=== PATIENT | male | born 1950 | race Hispanic/Latino ===

== ENCOUNTER 2019-02-14 23:05 | Emergency (ER) | payer MEDICARE, OTHER ==
--- NOTE | 2019-02-14 23:18 | Emergency Department Report ---
ED Neuro Deficit HPI - General Chief Complaint: Neuro Symptoms/Deficit Stated Complaint: STROKE Time Seen by Provider: 02/14/19 23:12 Source: EMS Mode of arrival: Stretcher Limitations: No Limitations - History of Present Illness Initial Comments: [facility] Date of Service: 02/14/19 Impression: Stroke vs TIA: patient initally with aphasia and right sided weakness that resolved. I discussed tpa with his but his symptoms improved to only having confusion about how he got there. Would consider seizure in the differential as well. Decision was made not to give tpa due to his improvement of symptoms. Differential Diagnosis: 1. Cardioembolic 2. Small vessel disease/lacune 3. Thromboembolic, bjtsan-[id number] mechanism 4. Hypercoagulable state-related infarct 5. Transient ischemic attack 6. Thrombotic mechanism, large artery disease Comments: LKN: 22:00 Door time: 23:05 [facility] contacted: 23:05 Jeff:[facility]ialists at [id number]: NIHSS assessment time: 23:09 Recommendations: -ASA -Permissive htn up to 220/120 -Check Hgb A1c and lipid panel -dysphagia screen -Telemetry -Glucose control per primary team, avoid hypo- and hyperglycemia -DVT prophylaxis -PT/OT/Speech Inpatient neurology consultation Inpatient stroke evaluation as per Neurology/ Internal Medicine Discussed with ED MD Please call with questions Alyssa Johns, [facility] #[phone] CC right sided weakness and aphasia History of Present Illness 68 yo M who is presenting with right sided weakness and aphasia. Per his who I spoke with by phone he was normal until 22:00 this evening when she felt that he was confused and not making sense. He was able to speak when EMS arrived but then in transport he became non-verbal and developed right sided weakness. His right sided weakness gradually improved during CT and while I was talking with his but he continued to have issues with following any commands or answering questions. Diagnostics CT head: no acute process Exam NIHSS score: 1 Medical Decision Making: - Extensive number of diagnosis or management options are considered above. - Extensive amount of complex data reviewed. - High risk of complication and/or morbidity or mortality are associated with differential diagnostic considerations above. - There may be Uncertain outcome and increased probability of prolonged functional impairment or high probability of severe prolonged functional impair ment associated with some of these differential diagnosis. Medical Data Reviewed: 1.Data reviewed include clinical labs, radiology, Medical Tests; 2.Tests results discussed w/performing or interpreting physician; 3.Obtaining/reviewing old medical records; 4.Obtaining case history from another source; 5.Independent review of image, tracing or specimen. Patient was informed the Neurology Consult would happen via telehealth (remote video) and consented to receiving care in this manner. - Related Data Home Medications: Home Medications Medication Instructions Recorded Confirmed Last Taken Unobtainable 02/15/19 02/15/19 Unknown Allergies/Adverse Reactions: Allergies Allergy/AdvReac Type Severity Reaction Status Date / Time Sulfa (Sulfonamide Allergy Unknown Verified 02/14/19 23:12 Antibiotics) ED Review of Systems ROS: Stated complaint: STROKE Other details as noted in HPI ED Past Medical Hx - Medications Home Medications: Home Medications Medication Instructions Recorded Confirmed Last Taken Type Unobtainable 02/15/19 02/15/19 Unknown History ED Neuro Physical Exam - General Limitations: No Limitations Suspected Stroke: Yes - NIHSS Assessment Interval: Baseline 1a. Level of Consciousness: alert/keenly responsive 1b. LOC Questions: answers 1 question correctly 1c. LOC Commands: performs tasks correctly 2. Best Gaze: normal 3. Visual: no visual loss 4. Facial Palsy: normal symmetrical movement 5b. Motor Arm Right: no drift 5a. Motor Arm Left: no drift 6a. Motor Leg Left: no drift 6b. Motor Leg Right: no drift 7. Limb Ataxia: absent 8. Sensory: normal 9. Best Language: no aphasia 10. Dysarthria: normal 11. Extinction/Inattention: no abnormality Total Score: 1 Stroke Severity: Minor Stroke ED Course Vital Signs 02/14/19 02/14/19 02/14/19 23:28 23:30 23:48 Pulse Rate 66 66 65 Respiratory 9 L 14 10 L Rate Blood Pressure 111/71 O2 Sat by Pulse 96 97 98 Oximetry 02/15/19 00:01 Pulse Rate 70 Respiratory 16 Rate Blood Pressure 159/63 O2 Sat by Pulse 99 Oximetry - Lab Data Result diagrams: 02/14/19 23:24 02/14/19 23:24 Lab Results 02/14/19 02/14/19 02/14/19 Range/Units 23:18 23:24 23:24 WBC 10.9 (4.5-11.0) K/mm3 RBC 4.25 (3.65-5.03) M/mm3 Hgb 12.8 (11.8-15.2) gm/dl Hct 37.3 (35.5-45.6) % MCV 88 (84-94) fl MCH 30 (28-32) pg MCHC 35 H (32-34) % RDW 15.2 (13.2-15.2) % Plt Count 240 (140-440) K/mm3 Lymph % (Auto) 11.5 L (13.4-35.0) % [place] % (Auto) 7.8 H (0.0-7.3) % Eos % (Auto) 2.1 (0.0-4.3) % Baso % (Auto) 1.6 (0.0-1.8) % Lymph # 1.3 (1.2-5.4) K/mm3 [place] # 0.8 (0.0-0.8) K/mm3 Eos # 0.2 (0.0-0.4) K/mm3 Baso # 0.2 H (0.0-0.1) K/mm3 Seg Neutrophils % 77.0 H (40.0-70.0) % Seg Neutrophils # 8.4 H (1.8-7.7) K/mm3 Sodium 134 L (137-145) mmol/L Potassium 5.6 H (3.6-5.0) mmol/L Chloride 95.7 L (98-107) mmol/L Carbon Dioxide 23 (22-30) mmol/L Anion Gap 21 mmol/L BUN 58 H (9-20) mg/dL Creatinine 3.2 H (0.8-1.5) mg/dL Estimated GFR 19 ml/min BUN/Creatinine Ratio 18 % Glucose 132 H (75-100) mg/dL POC Glucose 141 H (70-105) Calcium 9.3 (8.4-10.2) mg/dL Troponin T 0.137 H* (0.00-0.029) ng/mL Critical care attestation.: If time is entered above; I have spent that time in minutes in the direct care of this critically ill patient, excluding procedure time. ED Disposition Clinical Impression: TIA (transient ischemic attack) Disposition: OP ADMIT IP TO THIS HOSP Is pt being admited?: Yes Condition: Stable Referrals: LÓPEZ LORD MD [Primary Care Provider] - 3-5 Days
--- NOTE | 2019-02-14 23:26 | Cat Scan Report ---
CT HEAD/BRAIN WO CON CLINICAL INDICATION: Male, 68 years of age. neuro deficits <6hrs or sx present upon awakening COMPARISON: None TECHNIQUE: Contiguous axial images were obtained from the vertex through the skull base.This CT exam was perform ed using one or more of the following dose reduction techniques: automated exposure control, adjustme nt of the mA and/or kV according to patient size, or use of iterative reconstruction technique. FINDINGS: No acute intracranial hemorrhage, midline shift, or pathological extra-axial fluid collection. There is age-related volume loss with compensatory dilatation of the ventricular system and prominence of the overlying sulci. Patchy areas of decreased attenuation within the subcortical and periventricula r white matter compatible with the sequelae of chronic small vessel ischemic disease. No hyperdense M CA sign. No loss of the subinsular cortex. Ocular globes are grossly unremarkable. Calvarium is gross ly intact. Moderate calcification of carotid siphons. Mild mucosal thickening in the paranasal sinuses. Mastoid air cells are clear. IMPRESSION: No grossly acute intracranial abnormality. Mild age-related volume loss and chronic small vessel isch emic disease. No evidence of acute transcortical infarct or intracranial hemorrhage by CT at this freddie e. If clinical concern for acute intracranial process remains, MRI would be more sensitive. SHELBIE OSR notified of results on February 14, 2019 at 2323 hours EST. This document is electronically signed by Sonja Clark DO., February 14 2019 11:24:32 PM ET
[2019-02-14] MEDS ORDERED: ACTIVASE IV ONE ×2 (23:34)
[2019-02-14] MEDS ORDERED: NACL 0.9% IV ONE (23:34)
[2019-02-14 23:38] LABS: Basophils # (Auto) 0.2 K/mm3 (0.0-0.1); Basophils % (Auto) 1.6 % (0.0-1.8); Eosinophils # (Auto) 0.2 K/mm3 (0.0-0.4); Eosinophils % (Auto) 2.1 % (0.0-4.3); Hematocrit 37.3 % (35.5-45.6); Hemoglobin 12.8 gm/dl (11.8-15.2); Lymphocytes # (Auto) 1.3 K/mm3 (1.2-5.4); Lymphocytes % (Auto) 11.5 % (13.4-35.0); Mean Corpuscular HGB Conc 35 % (32-34); Mean Corpuscular Volume 88 fl (84-94); Monocytes # (Auto) 0.8 K/mm3 (0.0-0.8); Monocytes % (Auto) 7.8 % (0.0-7.3); Platelet Count 240 K/mm3 (140-440); Red Blood Count 4.25 M/mm3 (3.65-5.03); Red Cell Distribution Width 15.2 % (13.2-15.2)
--- NOTE | 2019-02-14 23:38 | Emergency Department Report ---
ED Neuro Deficit HPI - General Chief Complaint: Neuro Symptoms/Deficit Stated Complaint: STROKE Time Seen by Provider: 02/14/19 23:12 Source: EMS Mode of arrival: Stretcher Limitations: No Limitations - History of Present Illness Initial Comments: Mr. Marquez is a 68-year-old male with history of insulin-dependent diabetes, CHF, hypertension who presents with slurred speech and confusion since 10 PM. noticed slurred speech and confusion. Upon EMS arrival he was conversant and able to give name and birthday. However he is now nonverbal. He does not provide any information. He does not attempt to speak any words. He has limited movement of the right side. No previous history of stroke. Currently not on anticoagulation according to EMS report. -: Sudden Time: 22:00 Location: speech, right arm, right leg, altered Presenting Symptoms: Present: Weak/Paralyzed One Side, Unable to Speak Clearly, Altered Mental Status History of same: No Place: home Severity: severe Worsens With: time On Anticoagulants: No Context: sudden onset Treatments Prior to Arrival: none - Related Data Allergies/Adverse Reactions: Allergies Allergy/AdvReac Type Severity Reaction Status Date / Time Sulfa (Sulfonamide Allergy Unknown Verified 02/14/19 23:12 Antibiotics) ED Review of Systems ROS: Stated complaint: STROKE Other details as noted in HPI Comment: Unobtainable due to pts medical conditions (altered mental status) ED Past Medical Hx - Past Medical History Previous Medical History?: Yes Hx Hypertension: Yes Hx Congestive Heart Failure: Yes Hx Diabetes: Yes - Surgical History Additional Surgical History: Unable to obtain - Family History Family history: other (unable to obtain) - Social History Other Social History: Unable to obtain, lives with at home ED Neuro Physical Exam - General Limitations: No Limitations General appearance: lethargic, other (makes eye contact does not attempt to speak, favors the left side) Suspected Stroke: Yes - Head Head exam: Present: atraumatic, normocephalic - Eye Eye exam: Present: normal appearance - ENT ENT exam: Present: mucous membranes moist - Neck Neck exam: Present: normal inspection, full ROM - Respiratory Respiratory exam: Present: normal lung sounds bilaterally. Absent: respiratory distress, wheezes, rales, rhonchi - Cardiovascular Cardiovascular Exam: Present: regular rate, normal rhythm, normal heart sounds. Absent: bradycardia, tachycardia, systolic murmur, diastolic murmur, rubs, gallop - GI/Abdominal GI/Abdominal exam: Present: soft, normal bowel sounds. Absent: distended, tenderness, guarding, rebound - Rectal Rectal exam: Present: deferred - Extremities Exam Extremities exam: Present: normal inspection - Neurological Exam Neurological exam: Present: altered - NIHSS Assessment Interval: Baseline 1a. Level of Consciousness: arousable/minor stimuli 1b. LOC Questions: aphasic 1c. LOC Commands: performs no tasks correctly 2. Best Gaze: corrects with occulocephalic reflex 3. Visual: complete hemianopia 4. Facial Palsy: minor paralysis 5b. Motor Arm Right: some gravity effort 5a. Motor Arm Left: drift 6a. Motor Leg Left: some gravity effort 6b. Motor Leg Right: no gravity effort 7. Limb Ataxia: present 1 limb 8. Sensory: severe/total sensory loss 9. Best Language: mute/global aphasia 10. Dysarthria: mute/anarrthric 11. Extinction/Inattention: profound inattention Total Score: 27 Stroke Severity: Severe Stroke - Psychiatric Psychiatric exam: Present: normal affect, normal mood - Skin Skin exam: Present: warm, dry, intact, normal color. Absent: rash ED Course Vital Signs 02/14/19 23:48 Pulse Rate 65 Respiratory 10 L Rate O2 Sat by Pulse 98 Oximetry - Lab Data Result diagrams: 02/14/19 23:24 Lab Results 02/14/19 02/14/19 Range/Units 23:18 23:24 WBC 10.9 (4.5-11.0) K/mm3 RBC 4.25 (3.65-5.03) M/mm3 Hgb 12.8 (11.8-15.2) gm/dl Hct 37.3 (35.5-45.6) % MCV 88 (84-94) fl MCH 30 (28-32) pg MCHC 35 H (32-34) % RDW 15.2 (13.2-15.2) % Plt Count 240 (140-440) K/mm3 Lymph % (Auto) 11.5 L (13.4-35.0) % [place] % (Auto) 7.8 H (0.0-7.3) % Eos % (Auto) 2.1 (0.0-4.3) % Baso % (Auto) 1.6 (0.0-1.8) % Lymph # 1.3 (1.2-5.4) K/mm3 [place] # 0.8 (0.0-0.8) K/mm3 Eos # 0.2 (0.0-0.4) K/mm3 Baso # 0.2 H (0.0-0.1) K/mm3 Seg Neutrophils % 77.0 H (40.0-70.0) % Seg Neutrophils # 8.4 H (1.8-7.7) K/mm3 POC Glucose 141 H (70-105) 02/14/19 23:38 EKG obtained at 2331 Normal sinus rhythm rate 65 beats a minute prolonged NH interval normal QT interval elevation, nonspecific T-wave pattern inferior Q waves present positive LVH - Radiology Data Radiology results: report reviewed CT head without acute process. - Medical Decision Making Mr. Marquez presented with impressive stroke symptoms of right sided neglect, mute/aphasia, confusion. Remarkably, after returning from CT scan, his symptoms have resolved with only mild aphasia. He is having trouble remember some events. Due to rapidly improving symptoms, TPA is no longer indicated although appropriately ordered by teleneurology specialist Given ASA. Admitted to hospitalist service in fair condition. Critical Care Time: Yes Critical care time in (mins) excluding proc time.: 40 Critical care attestation.: If time is entered above; I have spent that time in minutes in the direct care of this critically ill patient, excluding procedure time. 40 minutes of critical care time excluding procedures were used in the care of the patient. Patient required multiple assessments and interventions. I reviewed the electronic medical record. I spoke with consultants involved in the care of the patient. I came to the bedside immediately to obtain history from EMS. I performed an NIH stroke scale exam alongside teleneurologist. Code stroke was activated. ED Disposition Clinical Impression: TIA (transient ischemic attack) Disposition: OP ADMIT IP TO THIS HOSP Is pt being admited?: Yes Does the pt Need Aspirin: Yes Condition: Stable
[2019-02-14 23:59] LABS: Calcium 9.3 mg/dL (8.4-10.2)
[2019-02-15] MEDS ORDERED: BABY ASPIRIN PO ONE (00:04)
[2019-02-15 00:44] LABS: INR 1.2 (0.87-1.13)
[2019-02-15 00:45] LABS: Partial Thromboplastin Time 27.3 Sec. (24.2-36.6)
[2019-02-15 01:53] LABS: Chol/HDL Ratio 6.84 %
[2019-02-15 02:09] VITALS: BP 167/84
== END 2019-02-15 02:27 | disposition admitted as inpatient to this hospital (09) ==
LOC: ED 23:05
DX: G45.9 Transient cerebral ischemic attack, unspecified (principal); I11.0 Hypertensive heart disease with heart failure; I50.9 Heart failure, unspecified; E11.9 Type 2 diabetes mellitus without complications; Z88.2 Allergy status to sulfonamides
CPT/HCPCS: 36415; 70450; 80048; 80061; 82962; 84484; 85025; 85610; 85670; 85730; 93005; 93010; J2997

== ENCOUNTER 2021-10-06 22:52 | Inpatient (IN) | payer MEDICARE ==
[2021-10-07] MEDS ORDERED: ONDANSETRON 4 MG/2 ML INJ IV ONE
[2021-10-07] MEDS ORDERED: PANTOPRAZOLE 80 MG in SODIUM CHLORIDE 0.9% 100 ML IV ONE (00:01)
[2021-10-07] MEDS ORDERED: PANTOPRAZOLE 40 MG INJ IV ONE (00:01)
--- NOTE | 2021-10-07 00:03 | Emergency Department Report ---
ED General Adult HPI - General Chief complaint: GI Bleed Stated complaint: GI bleed Time Seen by Provider: 10/06/21 23:52 Source: patient, EMS (My EMS is clear), RN notes reviewed Mode of arrival: Stretcher Limitations: No Limitations - History of Present Illness Initial comments: The patient is a 70-year-old gentleman. He is not known to myself previously. He has a history of end-stage renal disease and is on hemodialysis, Saturday, , Saturday. He reports his [place]ai [place] is Dr. Prather at [facility], [place]. He presents to the ER today with a complaint of abdominal cramping, black stool, and possible coffee-ground emesis. He also has a history of chronic respiratory failure, on home oxygen for "water in my heart and lungs." Patient denies headache, neck pain, chest pain, upper abdominal pain, and take your blood thinning medications. He is not sure if he is ever had a colonoscopy or endoscopy. -: Gradual, hour(s) Location: abdomen Radiation: non-radiation Quality: aching Consistency: intermittent Improves with: none Worsens with: none - Related Data Home Medications Medication Instructions Recorded Confirmed Last Taken Unobtainable 02/15/19 02/15/19 Unknown Allergies Allergy/AdvReac Type Severity Reaction Status Date / Time Sulfa (Sulfonamide Allergy Unknown Verified 10/06/21 23:07 Antibiotics) ED Review of Systems ROS: Stated complaint: RECTUM BLEEDING Other details as noted in HPI Constitutional: malaise. denies: fever Eyes: denies: eye discharge ENT: denies: epistaxis Respiratory: shortness of breath (Chronic shortness of breath). denies: cough Cardiovascular: denies: chest pain Gastrointestinal: abdominal pain, nausea, hematemesis, melena Musculoskeletal: back pain Neurological: weakness Psychiatric: anxiety Hematological/Lymphatic: denies: easy bleeding ED Past Medical Hx - Past Medical History Hx Hypertension: Yes Hx Congestive Heart Failure: Yes Hx Diabetes: Yes - Surgical History Additional Surgical History: Unable to obtain - Social History Smoking Status: Never Smoker Substance Use Type: None - Medications Home Medications: Home Medications Medication Instructions Recorded Confirmed Last Taken Type Unobtainable 02/15/19 02/15/19 Unknown History ED Physical Exam - General Limitations: No Limitations General appearance: alert, anxious, obese - Head Head exam: Present: atraumatic, normocephalic - Eye Eye exam: Present: EOMI, other (Bilateral conjunctiva are pale). Absent: nystagmus - ENT ENT exam: Present: normal exam, normal orophraynx, mucous membranes moist, normal external ear exam - Neck Neck exam: Present: normal inspection, full ROM. Absent: tenderness, meningismus - Respiratory Respiratory exam: Present: accessory muscle use. Absent: respiratory distress, wheezes, rales, rhonchi, stridor - Cardiovascular Cardiovascular Exam: Present: regular rate, irregular rhythm, normal heart sounds. Absent: bradycardia, tachycardia, systolic murmur, diastolic murmur, rubs, gallop - GI/Abdominal GI/Abdominal exam: Present: soft. Absent: distended, tenderness, guarding, rebound, rigid, pulsatile mass - Rectal Rectal exam: Present: normal inspection, other (Chaperoned by nurse Charli Potts). Absent: black stool, bloody stool, fecal impaction, hemorrhoids, mass - Extremities Exam Extremities exam: Present: normal inspection (Right upper extremity fistula noted, without redness, pus or streaking), full ROM, pedal edema, other (2+ pulses noted in the bilateral upper and lower extremities. There is no palpable cord. negative Homans sign. Muscular compartments are soft. The pelvis is stable.). Absent: calf tenderness - Back Exam Back exam: Present: normal inspection. Absent: tenderness, CVA tenderness (R), CVA tenderness (L), paraspinal tenderness, vertebral tenderness - Neurological Exam Neurological exam: Present: alert, other (No facial droop. Tongue midline. Extraocular movements intact bilaterally. Facial sensation intact to light touch in V1, V2, V3 distribution bilaterally. 5 and a 5 strength in 4 extremities. Sensation intact to light touch in 4 extremities.). Absent: motor sensory deficit - Psychiatric Psychiatric exam: Present: anxious - Skin Skin exam: Present: warm, dry, intact, normal color. Absent: rash ED Course Vital Signs 10/06/21 10/06/21 23:08 23:40 Temperature 98.4 F Pulse Rate 75 Respiratory 19 16 Rate Blood Pressure 140/82 [Right] O2 Sat by Pulse 99 98 Oximetry - Reevaluation(s) Reevaluation #1: 10/07/21 02:08 Differential diagnosis, including but not limited to: GERD, gastritis, hiatal h ernia, pneumonia, upper GI bleed, end-stage renal disease, dysfunctional platelets, obstruction, colitis, diverticulitis Assessment and plan: 70-year-old gentleman, who has pale skin, pale conjunctiva, no recent endoscopic evaluation and he is aware of, with a complaint of black stool, and coffee-ground emesis. He also has a history of chronic respiratory failure. He is found to be anemic, with evidence of chronic/end-stage renal disease. He will be started on desmopressin and Protonix. He will be given supportive medications. We will also continue him on supplemental oxygen. Contacted GI on-call, Dr. Prather. Discussed history, physical laboratory studies. Dr. Prather will follow in consultation. Contacted nephrology on-call, Dr. Blanco. Discussed history, CBC, clinical impression and plan of care. Nephrology will follow in consultation. CT scan abdomen pelvis obtained because of patient's complaint of abdominal cramping. Pleural effusion is noted, these do not appear to be acutely symptomatic. There is no right upper quadrant pain or tenderness, I doubt acute cholecystitis. Otherwise, CT scan abdomen pelvis without contrast does not demonstrate any emergent findings. The patient has equal pulses in the upper and lower extremities, no pulsatile abdominal mass. Patient agreeable to admission. Contacted [place] coordinating physician, Dr. Méndez Discussed history, p hysical, and overall clinical impression. She authorizes this patient to be admitted to the hospital. Hospital physician, Dr. Adrienne Larsen, To admit patient to the medical service While in the emergency room, patient did get somewhat agitated complaining of back pain and spasms, will therefore be medicated with morphine. 10/07/21 02:11 Patient not sure if A. fib new or old. Will not anticoagulate at this time given concern for GI bleed. I will defer to inpatient team to further evaluate and manage this. ED Medical Decision Making - Lab Data Result diagrams: 10/07/21 00:07 10/07/21 00:07 Vital Signs 10/06/21 10/06/21 23:08 23:40 Temperature 98.4 F Pulse Rate 75 Respiratory 19 16 Rate Blood Pressure 140/82 [Right] O2 Sat by Pulse 99 98 Oximetry Lab Results 10/07/21 10/07/21 10/07/21 Range/Units 00:07 00:07 00:07 WBC 10.9 (4.5-11.0) K/mm3 RBC 2.75 L (3.65-5.03) M/mm3 Hgb 8.5 L (11.8-15.2) gm/dl Hct 27.5 L (35.5-45.6) % MCV 100 H (84-94) fl MCH 31 (28-32) pg MCHC 31 L (32-34) % RDW 18.3 H (13.2-15.2) % Plt Count 245 (140-440) K/mm3 Lymph % (Auto) 5.3 L (13.4-35.0) % [place] % (Auto) 8.8 H (0.0-7.3) % Eos % (Auto) 0.2 (0.0-4.3) % Baso % (Auto) 0.8 (0.0-1.8) % Lymph # (Auto) 0.6 L (1.2-5.4) K/mm3 [place] # (Auto) 1.0 H (0.0-0.8) K/mm3 Eos # (Auto) 0.0 (0.0-0.4) K/mm3 Baso # (Auto) 0.1 (0.0-0.1) K/mm3 Seg Neutrophils % 84.9 H (40.0-70.0) % Seg Neutrophils # 9.2 H (1.8-7.7) K/mm3 PT 20.5 H (12.2-14.9) Sec. INR 1.59 H (0.87-1.13) APTT 32.1 (24.2-36.6) Sec. Sodium 140 (137-145) mmol/L Potassium 5.3 H (3.6-5.0) mmol/L Chloride 95.9 L (98-107) mmol/L Carbon Dioxide 29 (22-30) mmol/L Anion Gap 20 mmol/L BUN 90 H (9-20) mg/dL Creatinine 5.4 H (0.8-1.3) mg/dL Estimated GFR 11 ml/min BUN/Creatinine Ratio 17 % Glucose 218 H (75-100) mg/dL Calcium 8.8 (8.4-10.2) mg/dL Magnesium 2.00 (1.7-2.3) mg/dL Total Bilirubin 0.70 (0.1-1.2) mg/dL AST 43 H (5-40) units/L ALT 26 (7-56) units/L Alkaline Phosphatase 267 H (35-129) units/L Total Protein 6.1 L (6.3-8.2) g/dL Albumin 2.9 L (3.9-5) g/dL Albumin/Globulin Ratio 0.9 % Blood Type 10/07/21 Range/Units 00:07 WBC (4.5-11.0) K/mm3 RBC (3.65-5.03) M/mm3 Hgb (11.8-15.2) gm/dl Hct (35.5-45.6) % MCV (84-94) fl MCH (28-32) pg MCHC (32-34) % RDW (13.2-15.2) % Plt Count (140-440) K/mm3 Lymph % (Auto) (13.4-35.0) % [place] % (Auto) (0.0-7.3) % Eos % (Auto) (0.0-4.3) % Baso % (Auto) (0.0-1.8) % Lymph # (Auto) (1.2-5.4) K/mm3 [place] # (Auto) (0.0-0.8) K/mm3 Eos # (Auto) (0.0-0.4) K/mm3 Baso # (Auto) (0.0-0.1) K/mm3 Seg Neutrophils % (40.0-70.0) % Seg Neutrophils # (1.8-7.7) K/mm3 PT (12.2-14.9) Sec. INR (0.87-1.13) APTT (24.2-36.6) Sec. Sodium (137-145) mmol/L Potassium (3.6-5.0) mmol/L Chloride (98-107) mmol/L Carbon Dioxide (22-30) mmol/L Anion Gap mmol/L BUN (9-20) mg/dL Creatinine (0.8-1.3) mg/dL Estimated GFR ml/min BUN/Creatinine Ratio % Glucose (75-100) mg/dL Calcium (8.4-10.2) mg/dL Magnesium (1.7-2.3) mg/dL Total Bilirubin (0.1-1.2) mg/dL AST (5-40) units/L ALT (7-56) units/L Alkaline Phosphatase (35-129) units/L Total Protein (6.3-8.2) g/dL Albumin (3.9-5) g/dL Albumin/Globulin Ratio % Blood Type O POSITIVE - EKG Data -: EKG Interpreted by Md EKG shows normal: sinus rhythm - EKG Data When compared to previous EKG there are: previous EKG unavailable 10/07/21 02:05 EKG is interpreted at 12: 23 A. fib, 90 bpm. Normal axis, QTC 523 ms. Poor R wave progression. Motion artifact. Abnormal EKG. Not a STEMI - Radiology Data Radiology results: pending, report reviewed, image reviewed CT ABDOMEN AND PELVIS WITHOUT CONTRAST INDICATION / CLINICAL INFORMATION: acute n/v, esrd, vomiting blood, lower abd pain. TECHNIQUE: Axial CT images were obtained through the abdomen and pelvis without IV contrast. All CT scans at this location are performed using CT dose reduction for ALARA by means of automated exposure control. COMPARISON: None available. FINDINGS: LOWER CHEST: Loculated pleural effusions at both lung bases with associated soft tissue thickening which is masslike compatible with multifocal rounded atelectasis. Coronary artery calcification. LIVER: Prominence of the caudate lobe with small right lobe relative to the left lobe. Changes may represent early cirrhosis. GALLBLADDER: Calcified gallstones. BILE DUCTS: No significant abnormality. PANCREAS: No significant abnormality. SPLEEN: No significant abnormality. ADRENALS: No significant abnormality. RIGHT KIDNEY / URETER: No significant abnormality. LEFT KIDNEY / URETER: No significant abnormality. STOMACH / SMALL BOWEL: Gastric distention. No wall thickening or small bowel distention. COLON: No significant abnormality. APPENDIX: No significant abnormality. PERITONEUM: No free fluid. No free air. No fluid collection. LYMPH NODES: No significant adenopathy. VASCULAR STRUCTURES: Moderate atherosclerotic vascular calcification. URINARY BLADDER: Thickening at the anterior bladder. REPRODUCTIVE ORGANS: No significant abnormality. ADDITIONAL FINDINGS: None. SKELETAL SYSTEM: Left hip prosthesis. IMPRESSION: 1. Mild gastric distention. 2. Chronic changes at the lung bases including loculated pleural fluid and multifocal rounded atelectasis/scarring. 3. Calcified gallstones. 4. Thickening of the anterior bladder. It is uncertain if this is a true lesion or represents underdistention. Signer Name: Bhupendra Adler MD Signed: 10/07/2021 12:15 AM Workstation Name: [id number] Critical care attestation.: If time is entered above; I have spent that time in minutes in the direct care of this critically ill patient, excluding procedure time. ED Disposition Clinical Impression: ESRD (end stage renal disease), Chronic respiratory failure, GI bleed, Anemia, Abdominal pain Disposition: ADMITTED INPATIENT Is pt being admited?: Yes Does the pt Need Aspirin: No Condition: Fair Forms: Accompanied Note
[2021-10-07 00:52] LABS: Basophils # (Auto) 0.1 K/mm3 (0.0-0.1); Basophils % (Auto) 0.8 % (0.0-1.8); Eosinophils % (Auto) 0.2 % (0.0-4.3); Hematocrit 27.5 % (35.5-45.6); Hemoglobin 8.5 gm/dl (11.8-15.2); Lymphocytes # (Auto) 0.6 K/mm3 (1.2-5.4); Lymphocytes % (Auto) 5.3 % (13.4-35.0); Mean Corpuscular HGB Conc 31 % (32-34); Mean Corpuscular Volume 100 fl (84-94); Monocytes % (Auto) 8.8 % (0.0-7.3); Platelet Count 245 K/mm3 (140-440); Red Blood Count 2.75 M/mm3 (3.65-5.03); Red Cell Distribution Width 18.3 % (13.2-15.2)
[2021-10-07] MEDS ORDERED: SODIUM CHLORIDE 0.9% IV ONE (01:01)
[2021-10-07] MEDS ORDERED: DESMOPRESSIN ACETATE IV ONE (01:01)
[2021-10-07 01:05] LABS: INR 1.59 (0.87-1.13)
[2021-10-07 01:06] LABS: Partial Thromboplastin Time 32.1 Sec. (24.2-36.6)
[2021-10-07 01:13] LABS: Albumin 2.9 g/dL (3.9-5); Calcium 8.8 mg/dL (8.4-10.2)
--- NOTE | 2021-10-07 01:19 | Cat Scan Report ---
CT ABDOMEN AND PELVIS WITHOUT CONTRAST INDICATION / CLINICAL INFORMATION: acute n/v, esrd, vomiting blood, lower abd pain. TECHNIQUE: Axial CT images were obtained through the abdomen and pelvis without IV contrast. All CT scans at this location are performed using CT dose reduction for ALARA by means of automated exposure control. COMPARISON: None available. FINDINGS: LOWER CHEST: Loculated pleural effusions at both lung bases with associated soft tissue thickening wh ich is masslike compatible with multifocal rounded atelectasis. Coronary artery calcification. LIVER: Prominence of the caudate lobe with small right lobe relative to the left lobe. Changes may re present early cirrhosis. GALLBLADDER: Calcified gallstones. BILE DUCTS: No significant abnormality. PANCREAS: No significant abnormality. SPLEEN: No significant abnormality. ADRENALS: No significant abnormality. RIGHT KIDNEY / URETER: No significant abnormality. LEFT KIDNEY / URETER: No significant abnormality. STOMACH / SMALL BOWEL: Gastric distention. No wall thickening or small bowel distention. COLON: No significant abnormality. APPENDIX: No significant abnormality. PERITONEUM: No free fluid. No free air. No fluid collection. LYMPH NODES: No significant adenopathy. VASCULAR STRUCTURES: Moderate atherosclerotic vascular calcification. URINARY BLADDER: Thickening at the anterior bladder. REPRODUCTIVE ORGANS: No significant abnormality. ADDITIONAL FINDINGS: None. SKELETAL SYSTEM: Left hip prosthesis. IMPRESSION: 1. Mild gastric distention. 2. Chronic changes at the lung bases including loculated pleural fluid and multifocal rounded atelect asis/scarring. 3. Calcified gallstones. 4. Thickening of the anterior bladder. It is uncertain if this is a true lesion or represents underdi stention. Signer Name: Bhupendra Adler MD Signed: 10/07/2021 1:15 AM Workstation Name: [id number]
[2021-10-07] MEDS ORDERED: METOCLOPRAMIDE 10 MG/2 ML INJ IV ONE (01:47)
[2021-10-07] MEDS ORDERED: MORPHINE 4 MG/1 ML INJ IV ONE (02:05)
[2021-10-07] MEDS ORDERED: MORPHINE 2 MG/1 ML INJ ONE (02:06)
[2021-10-07] MEDS ORDERED: ONDANSETRON 4 MG/2 ML INJ IV PRN (02:27)
[2021-10-07] MEDS ORDERED: MORPHINE 4 MG/1 ML INJ IV PRN (02:27)
[2021-10-07] MEDS ORDERED: MAGNESIUM HYDROXIDE (MOM) ORAL LIQD UDC PO PRN (02:27)
[2021-10-07] MEDS ORDERED: ACETAMINOPHEN 325 MG TAB PO PRN (02:27)
[2021-10-07] MEDS ORDERED: DEXTROSE 50% IN WATER (25GM) 50 ML SYRINGE IV PRN (02:27)
--- NOTE | 2021-10-07 02:35 | XRay Report ---
CHEST 1 VIEW 10/07/2021 2:01 AM INDICATION / CLINICAL INFORMATION: Pleural effusions, upper back pain. COMPARISON: CT earlier the same day. FINDINGS: SUPPORT DEVICES: None. HEART / MEDIASTINUM: No significant abnormality. LUNGS / PLEURA: Loculated basilar effusions with associated rounded atelectasis. The mid and upper zo alexandre are clear. No pneumothorax. ADDITIONAL FINDINGS: Vascular stents overlying the right axillary and central subclavian regions. IMPRESSION: Loculated basilar effusions with associated rounded atelectasis. Signer Name: Bhupendra Adler MD Signed: 10/07/2021 2:31 AM Workstation Name: [id number]
--- NOTE | 2021-10-07 03:00 | History and Physical Report ---
History of Present Illness Date of examination: 10/07/21 Date of admission: 10/07/2021 Chief complaint: Black Stool Abdominal Cramping History of present illness: 70-year-old male with known history of end-stage renal disease on dialysis on Tuesdays, and Saturdays presenting to the emergency room today complaining of abdominal cramping, black stool and what appeared to be coffee- ground emesis. He states he has been using ibuprofen lately almost on a daily basis for generalized body aches and pain. He denies any fever or chills, no chest pain, no headache or dizziness and no diaphoresis. He has chronic respiratory failure and has been on home oxygen for his known history of CHF. Work-up in the emergency room today, hemoglobin was 8.5 and hematocrit 27.5. Potassium was 5.3, BUN of 19 creatinine of 5.4. Chest x-ray shows: Loculated basilar effusions with associated rounded atelectasis. CT of the abdomen and pelvis shows:1. Mild gastric distention. 2. Chronic changes at the lung bases including loculated pleural fluid and multifocal rounded atelectasis/scarring. 3. Calcified gallstones. 4. Thickening of the anterior bladder. It is uncertain if this is a true lesion or represents underdistention. Past History Past Medical History: diabetes, heart failure, hypertension Past Surgical History: No surgical history (upper extremity A-V fistula), Other Social history: no significant social history Family history: no significant family history Medications and Allergies Allergies Allergy/AdvReac Type Severity Reaction Status Date / Time Sulfa (Sulfonamide Allergy Unknown Verified 10/06/21 23:07 Antibiotics) Home Medications Medication Instructions Recorded Confirmed Last Taken Type Unobtainable 02/15/19 02/15/19 Unknown History Active Meds: Active Medications Acetaminophen (Acetaminophen 325 Mg Tab) 650 mg PO Q4H PRN PRN Reason: Pain MILD(1-3)/Fever >100.5/ELMORE Dextrose (Dextrose 50% In Water (25gm) 50 Ml Syringe) 0 ml IV Q30MIN PRN; Protocol PRN Reason: Hypoglycemia Pantoprazole Sodium 80 mg/ (Sodium Chloride) 100 mls @ 10 mls/hr IV ONCE ONE Stop: 10/07/21 10:00 Last Admin: 10/07/21 01:03 Dose: 8 mg/hr, 10 mls/hr Documented by: Insulin Human Lispro (Insulin Lispro 100 Unit/Ml) 0 unit SUB-Q ACHS HELGA; Protocol Magnesium Hydroxide (Magnesium Hydroxide (Mom) Oral Liqd Udc) 30 ml PO Q4H PRN PRN Reason: Constipation Morphine Sulfate (Morphine 2 Mg/1 Ml Inj) 2 mg IV Q4H PRN PRN Reason: Pain, Moderate (4-6) Morphine Sulfate (Morphine 4 Mg/1 Ml Inj) 4 mg IV Q4H PRN PRN Reason: Pain , Severe (7-10) Ondansetron HCl (Ondansetron 4 Mg/2 Ml Inj) 4 mg IV Q8H PRN PRN Reason: Nausea And Vomiting Sodium Chloride (Sodium Chloride 0.9% 10 Ml Flush Syringe) 10 ml IV BID HELGA Sodium Chloride (Sodium Chloride 0.9% 10 Ml Flush Syringe) 10 ml IV PRN PRN PRN Reason: LINE FLUSH Review of Systems Constitutional: no fever, no chills Ears, nose, mouth and throat: no nasal congestion, no sore throat Cardiovascular: no chest pain, no palpitations Respiratory: shortness of breath, no cough Gastrointestinal: abdominal pain, coffee ground emesis, other (Black Stool), no nausea, no vomiting, no diarrhea Genitourinary Male: no dysuria, no hematuria, no flank pain, no nocturia Musculoskeletal: no neck pain, no low back pain Integumentary: no rash, no pruritis Neurological: no headaches, no confusion Psychiatric: no anxiety, no depression Endocrine: no polyphagia, no polydipsia, no polyuria, no nocturia Exam - Constitutional Vitals: Temp Pulse Resp BP Pulse Ox 98.4 F 75 16 140/82 98 10/06/21 23:08 10/06/21 23:08 10/06/21 23:40 10/06/21 23:08 10/06/21 23:40 General appearance: Present: mild distress, well-nourished - EENT Eyes: Present: PERRL, EOM intact. Absent: scleral icterus ENT: hearing intact, clear oral mucosa, dentition normal - Neck Neck: Present: supple, normal ROM - Respiratory Respiratory effort: normal Respiratory: bilateral: rales - Cardiovascular Rhythm: regular Heart Sounds: Present: S1 & S2. Absent: gallop, systolic murmur, diastolic murmur, rub, click - Extremities Extremities: no ischemia, pulses intact, pulses symmetrical, No edema, normal temperature, normal color, Full ROM Peripheral Pulses: within normal limits - Abdominal General gastrointestinal: Present: soft, non-tender, non-distended, normal bowel sounds. Absent: mass - Integumentary Integumentary: Present: clear, warm, dry. Absent: rash - Musculoskeletal Musculoskeletal: strength equal bilaterally - Psychiatric Psychiatric: appropriate mood/affect, intact judgment & insight, memory intact, cooperative - Neurologic Neurologic: CNII-XII intact, no focal deficits, moves all extremities Results - Labs CBC & Chem 7: 10/07/21 00:07 10/07/21 00:07 Labs: Abnormal lab results 10/07/21 10/07/21 10/07/21 Range/Units 00:07 00:07 00:07 RBC 2.75 L (3.65-5.03) M/mm3 Hgb 8.5 L (11.8-15.2) gm/dl Hct 27.5 L (35.5-45.6) % MCV 100 H (84-94) fl MCHC 31 L (32-34) % RDW 18.3 H (13.2-15.2) % Lymph % (Auto) 5.3 L (13.4-35.0) % [place] % (Auto) 8.8 H (0.0-7.3) % Lymph # (Auto) 0.6 L (1.2-5.4) K/mm3 [place] # (Auto) 1.0 H (0.0-0.8) K/mm3 Seg Neutrophils % 84.9 H (40.0-70.0) % Seg Neutrophils # 9.2 H (1.8-7.7) K/mm3 PT 20.5 H (12.2-14.9) Sec. INR 1.59 H (0.87-1.13) Potassium 5.3 H (3.6-5.0) mmol/L Chloride 95.9 L (98-107) mmol/L BUN 90 H (9-20) mg/dL Creatinine 5.4 H (0.8-1.3) mg/dL Glucose 218 H (75-100) mg/dL AST 43 H (5-40) units/L Alkaline Phosphatase 267 H (35-129) units/L Total Protein 6.1 L (6.3-8.2) g/dL Albumin 2.9 L (3.9-5) g/dL Assessment and Plan - Patient Problems (1) GI bleed Current Visit: Yes Status: Acute Plan to address problem: Patient is made n.p.o. He has been commenced on Protonix. We requests gastroenterology evaluation and recommendations. (2) Abdominal pain Current Visit: Yes Status: Acute Plan to address problem: Etiology unclear Possibly secondary to gastritis. Patient placed on proton pump inhibitor. (3) Anemia Current Visit: Yes Status: Acute Plan to address problem: Possibly chronic/GI bleed We will monitor CBC. (4) Chronic respiratory failure Current Visit: Yes Status: Acute Plan to address problem: Patient has known history of CHF. On home oxygen. (5) ESRD (end stage renal disease) Current Visit: Yes Status: Acute Plan to address problem: Patient gets dialysis on Tuesdays, and Saturdays. Consult placed to nephrology for evaluation. (6) DVT prophylaxis Current Visit: Yes Status: Acute Plan to address problem: Patient placed on sequential compression device. (7) Full code status Current Visit: Yes Status: Acute Plan to address problem: Patient is full code.
[2021-10-07] MEDS: MORPHINE 2 MG/1 ML INJ IV PRN ×2 (03:02→21:42)
[2021-10-07] MEDS ORDERED: SODIUM CHLORIDE 0.9% 100 ML IV PRN (08:55)
[2021-10-07] MEDS: PANTOPRAZOLE 40 MG INJ IV SCH ×2 (10:05→21:42)
[2021-10-07] MEDS: INSULIN LISPRO 100 UNIT/ML SUB-Q SCH ×4 (10:14→21:42)
[2021-10-07 13:08] LABS: Hepatitis C Virus Antibody Non-Reactive (NonReactive)
[2021-10-07 14:10] LABS: Hepatitis B Surface Antigen Nonreactive (Negative)
--- NOTE | 2021-10-07 14:32 | Gastroenterology Consultation ---
History of Present Illness - Reason for Consult Consult date: 10/07/21 melena/gi bleed Requesting physician: LAURA GR - History of Present Illness The patient is a 70 yo male with h/o esrd on dialysis, chf and chronic resp failure on oxygen who presented with coffee ground emesis/black stools and generalized weakness/sob. History primarily gathered from chart review and discussion with ER staff. Pt is a poor historian/provides minimal history at time of exam. He was seen in dialysis. Pt noted to be anemic (new onset since last labs in 2019), no overt gi bleeding episodes since admission. denies abd carter or n/v at time of exam. Past History Past Medical History: diabetes, ESRD, heart failure, hypertension Past Surgical History: No surgical history (upper extremity A-V fistula), Other Social history: no significant social history Family history: no significant family history Medications and Allergies Allergies Allergy/AdvReac Type Severity Reaction Status Date / Time Sulfa (Sulfonamide Allergy Unknown Verified 10/06/21 23:07 Antibiotics) Home Medications Medication Instructions Recorded Confirmed Last Taken Type Unobtainable 02/15/19 02/15/19 Unknown History Active Meds: Active Medications Acetaminophen (Acetaminophen 325 Mg Tab) 650 mg PO Q4H PRN PRN Reason: Pain MILD(1-3)/Fever >100.5/ELMORE Dextrose (Dextrose 50% In Water (25gm) 50 Ml Syringe) 0 ml IV Q30MIN PRN; Protocol PRN Reason: Hypoglycemia Sodium Chloride (Nacl 0.9%) 100 mls @ 999 mls/hr IV JUAN PRN PRN Reason: Hypotension Insulin Human Lispro (Insulin Lispro 100 Unit/Ml) 0 unit SUB-Q ACHS HELGA; Protocol Last Admin: 10/07/21 11:47 Dose: Not Given Documented by: Magnesium Hydroxide (Magnesium Hydroxide (Mom) Oral Liqd Udc) 30 ml PO Q4H PRN PRN Reason: Constipation Morphine Sulfate (Morphine 2 Mg/1 Ml Inj) 2 mg IV Q4H PRN PRN Reason: Pain, Moderate (4-6) Last Admin: 10/07/21 03:02 Dose: 2 mg Documented by: Morphine Sulfate (Morphine 4 Mg/1 Ml Inj) 4 mg IV Q4H PRN PRN Reason: Pain , Severe (7-10) Ondansetron HCl (Ondansetron 4 Mg/2 Ml Inj) 4 mg IV Q8H PRN PRN Reason: Nausea And Vomiting Pantoprazole Sodium (Pantoprazole 40 Mg Inj) 40 mg IV BID [facility] Last Admin: 10/07/21 10:05 Dose: 40 mg Documented by: Sodium Chloride (Sodium Chloride 0.9% 10 Ml Flush Syringe) 10 ml IV BID [facility] Last Admin: 10/07/21 10:14 Dose: 10 ml Documented by: Sodium Chloride (Sodium Chloride 0.9% 10 Ml Flush Syringe) 10 ml IV PRN PRN PRN Reason: LINE FLUSH Reviewed/updated patient's home and current medications Review of Systems - Review of Systems ROS unobtainable: due to mental status Exam - Constitutional Vital Signs: Temp Pulse Resp BP Pulse Ox 97.7 F 88 18 102/41 100 10/07/21 10:50 10/07/21 12:52 10/07/21 10:50 10/07/21 12:52 10/07/21 10:50 General appearance: no acute distress - EENT Eyes: PERRL, EOM intact - Respiratory Respiratory effort: normal Respiratory: bilateral: CTA - Cardiovascular Rhythm: regular Heart Sounds: Present: S1 & S2 - Gastrointestinal General gastrointestinal: Present: soft, non-tender, non-distended - Neurologic Neurological: disoriented - Labs CBC & Chem 7: 10/07/21 00:07 10/07/21 00:07 Lab Results: Laboratory Results - last 24 hr 10/07/21 10/07/21 10/07/21 00:07 00:07 00:07 WBC 10.9 RBC 2.75 L Hgb 8.5 L Hct 27.5 L MCV 100 H MCH 31 MCHC 31 L RDW 18.3 H Plt Count 245 Lymph % (Auto) 5.3 L [place] % (Auto) 8.8 H Eos % (Auto) 0.2 Baso % (Auto) 0.8 Lymph # (Auto) 0.6 L [place] # (Auto) 1.0 H Eos # (Auto) 0.0 Baso # (Auto) 0.1 Seg Neutrophils % 84.9 H Seg Neutrophils # 9.2 H PT 20.5 H INR 1.59 H APTT 32.1 Sodium 140 Potassium 5.3 H Chloride 95.9 L Carbon Dioxide 29 Anion Gap 20 BUN 90 H Creatinine 5.4 H Estimated GFR 11 BUN/Creatinine Ratio 17 Glucose 218 H POC Glucose Calcium 8.8 Magnesium 2.00 Total Bilirubin 0.70 AST 43 H ALT 26 Alkaline Phosphatase 267 H Total Protein 6.1 L Albumin 2.9 L Albumin/Globulin Ratio 0.9 Hepatitis A IgM Ab Hep Bs Antigen Hep B Core IgM Ab Hepatitis C Antibody Blood Type Antibody Screen Antibody Identification 10/07/21 10/07/21 10/07/21 00:07 08:38 10:50 WBC RBC Hgb Hct MCV MCH MCHC RDW Plt Count Lymph % (Auto) [place] % (Auto) Eos % (Auto) Baso % (Auto) Lymph # (Auto) [place] # (Auto) Eos # (Auto) Baso # (Auto) Seg Neutrophils % Seg Neutrophils # PT INR APTT Sodium Potassium Chloride Carbon Dioxide Anion Gap BUN Creatinine Estimated GFR BUN/Creatinine Ratio Glucose POC Glucose 315 H Calcium Magnesium Total Bilirubin AST ALT Alkaline Phosphatase Total Protein Albumin Albumin/Globulin Ratio Hepatitis A IgM Ab Non-reactive Hep Bs Antigen Nonreactive Hep B Core IgM Ab Non-reactive Hepatitis C Antibody Non-reactive Blood Type O POSITIVE Antibody Screen Positive Antibody Identification Anti-Fya - Imaging CT Scan: report reviewed Assessment and Plan 1. Coffee ground emesis/? ugi bleed - pt anemic on admission, no overt gi bleeding episodes overnight/today. in dialysis at time of exam. HD stable. continue IV PPI BID dosing and monitor/trend labs. will follow, and determine time of endoscopy based on clinical course. okay for clears from gi stand point.
[2021-10-07 16:08] LABS: Hematocrit 22.3 % (35.5-45.6); Hemoglobin 7.4 gm/dl (11.8-15.2)
--- NOTE | 2021-10-07 18:01 | Consultation ---
History of Present Illness - Reason for Consult Consult date: 10/07/21 end stage renal disease - History of Present Illness This is a 70-year-old man with end-stage renal disease on hemodialysis who presented with abdominal pain, vomiting and coffee-ground emesis. He was subsequently admitted for further workup and nephrology was consulted for ESRD management. Patient denies chest pain, diaphoresis, presyncope and syncope. Past History Past Medical History: diabetes, ESRD, heart failure, hypertension Past Surgical History: No surgical history (upper extremity A-V fistula), Other Social history: no significant social history Family history: no significant family history Medications and Allergies Allergies Allergy/AdvReac Type Severity Reaction Status Date / Time Sulfa (Sulfonamide Allergy Unknown Verified 10/06/21 23:07 Antibiotics) Home Medications Medication Instructions Recorded Confirmed Last Taken Type Unobtainable 02/15/19 02/15/19 Unknown History Active Meds: Active Medications Acetaminophen (Acetaminophen 325 Mg Tab) 650 mg PO Q4H PRN PRN Reason: Pain MILD(1-3)/Fever >100.5/ELMORE Dextrose (Dextrose 50% In Water (25gm) 50 Ml Syringe) 0 ml IV Q30MIN PRN; Protocol PRN Reason: Hypoglycemia Sodium Chloride (Nacl 0.9%) 100 mls @ 999 mls/hr IV JUAN PRN PRN Reason: Hypotension Insulin Human Lispro (Insulin Lispro 100 Unit/Ml) 0 unit SUB-Q ACHS [facility]; Protocol Last Admin: 10/07/21 16:47 Dose: 3 unit Documented by: Magnesium Hydroxide (Magnesium Hydroxide (Mom) Oral Liqd Udc) 30 ml PO Q4H PRN PRN Reason: Constipation Morphine Sulfate (Morphine 2 Mg/1 Ml Inj) 2 mg IV Q4H PRN PRN Reason: Pain, Moderate (4-6) Last Admin: 10/07/21 03:02 Dose: 2 mg Documented by: Morphine Sulfate (Morphine 4 Mg/1 Ml Inj) 4 mg IV Q4H PRN PRN Reason: Pain , Severe (7-10) Ondansetron HCl (Ondansetron 4 Mg/2 Ml Inj) 4 mg IV Q8H PRN PRN Reason: Nausea And Vomiting Pantoprazole Sodium (Pantoprazole 40 Mg Inj) 40 mg IV BID [facility] Last Admin: 10/07/21 10:05 Dose: 40 mg Documented by: Sodium Chloride (Sodium Chloride 0.9% 10 Ml Flush Syringe) 10 ml IV BID [facility] Last Admin: 10/07/21 10:14 Dose: 10 ml Documented by: Sodium Chloride (Sodium Chloride 0.9% 10 Ml Flush Syringe) 10 ml IV PRN PRN PRN Reason: LINE FLUSH Review of Systems Constitutional: no fever, no chills Ears, nose, mouth and throat: no nasal congestion, no nasal discharge Cardiovascular: no chest pain, no shortness of breath Respiratory: no cough, no shortness of breath Gastrointestinal: vomiting, coffee ground emesis, melena Musculoskeletal: no muscle weakness, no myalgias Integumentary: no rash, no pruritis Neurological: no weakness, no parathesias Psychiatric: no anxiety, no paranoia Hematologic/Lymphatic: no easy bruising, no easy bleeding Exam - Vital Signs Vital signs: Vital Signs Temp Pulse Resp BP Pulse Ox 98.4 F 75 19 140/82 99 10/06/21 23:08 10/06/21 23:08 10/06/21 23:08 10/06/21 23:08 10/06/21 23:08 - Physical Exam Narrative exam: General: No acute distress HEENT: Oral mucosa moist Neck: Supple, no JVD Chest: Clear to auscultation bilaterally Heart: RRR, S1 and S2, no pericardial rub Abdomen: Soft, nontender, no renal bruit Extremity: No peripheral cyanosis, edema Neurological: Alert, awake, no asterixis Dermatology: No skin rash Psych: No agitation Musculoskeletal: No joint effusion Results - Lab Results 10/07/21 15:25 10/07/21 00:07 Most recent lab results Calcium 8.8 mg/dL (8.4-10.2) 10/07/21 00:07 Magnesium 2.00 mg/dL (1.7-2.3) 10/07/21 00:07 Assessment and Plan Assessment - End-stage renal disease on hemodialysis - Hyperkalemia - Anemia of ESRD + GI bleed? - Coffe ground emesis - Hyperparathyroidism - Hyperphosphatemia Recommendations - HD today, terminated 30 min early due to soft pressures - Continue TTS - Monitor labs and volume status daily and assess need for additional dialysis session - Epogen with HD - Transfuse for hgb < 7 - Continue phosphorus binders - ESRD diet with 1.4 g/kg per day protein - Renally dose medication for creatinine clearance less than 15 cc/min - GI note reviewed
[2021-10-07 18:24] LABS: Chol/HDL Ratio 3.29 %
--- NOTE | 2021-10-07 19:04 | Event Note ---
Date: 10/07/21 Patient seen and examined during dialysis Appeared to be slightly confused Discussed with [place] physician and patient does have history of subarachnoid hemorrhage due to trauma back in July this year Will get serial troponin, EKG and CT head We will follow H&H, GI consult pending Continue PPI IV -It took me about 28 minutes to reevaluate and reasses this patient, discussed with RN/CM, review medical documents, lab results, imaging, medication list and placing order.
--- NOTE | 2021-10-07 23:15 | Cat Scan Report ---
CT head without contrast INDICATION : prev h/o of subdural hematoma. TECHNIQUE: Axial imaging performed from the skull apex through the skull base without the use of con trast. All CT scans at this location are performed using CT dose reduction for ALARA by means of aut omated exposure control. COMPARISON: None FINDINGS: Parenchyma: No mass, stroke or hemorrhage. Diffuse cerebral atrophy. Ventricles: Ventricles are normal in size and appear symmetric. Soft tissues: Soft tissues including the orbits appear normal. Bones: No acute osseous abnormality. Sinuses: Sinuses and mastoid air cells are clear. IMPRESSION: Diffuse cerebral atrophy. Signer Name: Bhupendra Adler MD Signed: 10/07/2021 11:11 PM Workstation Name: [id number]
[2021-10-08 01:33] LABS: Hematocrit 20.5 % (35.5-45.6); Hemoglobin 6.6 gm/dl (11.8-15.2)
[2021-10-08 06:42] LABS: Basophils # (Auto) 0.1 K/mm3 (0.0-0.1); Basophils % (Auto) 1.4 % (0.0-1.8); Eosinophils # (Auto) 0.4 K/mm3 (0.0-0.4); Eosinophils % (Auto) 4.5 % (0.0-4.3); Hematocrit 21.6 % (35.5-45.6); Hemoglobin 7.1 gm/dl (11.8-15.2); Lymphocytes # (Auto) 1.3 K/mm3 (1.2-5.4); Lymphocytes % (Auto) 16.7 % (13.4-35.0); Mean Corpuscular HGB Conc 33 % (32-34); Mean Corpuscular Volume 99 fl (84-94); Monocytes # (Auto) 0.7 K/mm3 (0.0-0.8); Monocytes % (Auto) 9.2 % (0.0-7.3); Platelet Count 221 K/mm3 (140-440); Red Blood Count 2.19 M/mm3 (3.65-5.03); Red Cell Distribution Width 18.9 % (13.2-15.2)
[2021-10-08 06:48] LABS: INR 1.27 (0.87-1.13)
[2021-10-08 07:04] LABS: Calcium 8.8 mg/dL (8.4-10.2)
[2021-10-08] MEDS: INSULIN LISPRO 100 UNIT/ML SUB-Q SCH ×4 (08:42→23:46)
[2021-10-08] MEDS: PANTOPRAZOLE 40 MG INJ IV SCH (09:05)
[2021-10-08] MEDS ORDERED: SODIUM CHLORIDE 0.9% 1000 ML 1,000 ML ONE (09:28)
[2021-10-08] MEDS ORDERED: propofoL 200 MG/20 ML VIAL IV ONE (09:29)
[2021-10-08] MEDS ORDERED: EPINEPHrine 1 MG/10 ML SYRINGE ONE (09:38)
--- NOTE | 2021-10-08 09:49 | Operative Report ---
Operative Report Operative Report: Esophagogastroduodenoscopy Procedure Note with epinephrine injection/control of bleeding Date of procedure: 10/08/2021 Endoscopist: Carlos Alberto Prather Pre-op diagnosis/indication: Upper GI bleed Post-op diagnosis: Ulcerative esophagitis MEDICATIONS: MAC COMPLICATIONS: No immediate complications ESTIMATED BLOOD LOSS: Minimal DESCRIPTION OF PROCEDURE: After consent was obtained, the patient was placed in the left lateral decubitis position. The olympus endoscope was inserted into the patient's mouth under direct vision and advanced to the 2nd portion of the duodenum without difficulty. The patient tolerated the procedure well. The views of the mucosa were good. The patient's vital signs were monitored continuously throughout the procedure. FINDINGS: There was severe ulcerative esophagitis in the lower esophagus with an area of adherent clot. this was spontaneously dislodged with advancing of the endoscope. There was an area of active oozing at the ulcerative site. This was injected with 1 cc of epinephrine with no active bleeding seen at the endo f the procedure. There was underlying salmon colored mucosa in the lower esophagus suggestive of possible de los santos's esophagus. Biopsies were not done due to bleeding. The stomach and visualized portion of the duodenum appeared normal. IMPRESSION: 1. Ulcerative esophagitis with adherent clot and underlying oozing of blood s/p epi injection with hemostasis. 2. Suspected underlying de los santos's esophagus - biopsies not done due to bleeding. RECOMMENDATIONS: -restart IV PPI drip x 24 hours and then switch to bid dosing tomorrow if no further bleeding/stable symptoms -okay for clears today -monitor H/H and transfuse as indicated to keep hgb > 7 -will need repeat endoscopy in 2 months to assess for healing and biopsy for underlying de los santos's if indicated
--- NOTE | 2021-10-08 11:34 | Consultation ---
History of Present Illness Consult date: 10/08/21 Requesting physician: LAURA GR Consult reason: elevated troponin History of present illness: 70-year-old male with diabetes orthostatic hypotension end-stage renal disease on hemodialysis came to the hospital for blackened stools. Patient is found to have an ulcer i n esophagus. Had cauterization. Patient has been feeling weak for some time. Limited ambulation. Patient was in [place] in July for synco pal episode secondary to orthostatic. Patient received IV fluids. Patient was discharged with aspirin statin medication and Nephro-Carlyle and insulin 30 units. Patient had abnormal troponin here. No change in EKG. Patient had normal LV function echocardiogram in July 2021 with moderate pulmonary pretension. Patient cardiac cath in 2017 reveals left main 20% and patent LAD circumflex and RCA with normal LV function. Patient denies any chest pain or shortness of breath. Past History Past Medical History: CAD, diabetes, ESRD, hyperlipidemia Past Surgical History: No surgical history (upper extremity A-V fistula), Other Social history: no significant social history Family history: no significant family history Medications and Allergies Allergies Allergy/AdvReac Type Severity Reaction Status Date / Time Sulfa (Sulfonamide Allergy Unknown Verified 10/06/21 23:07 Antibiotics) Home Medications Medication Instructions Recorded Confirmed Last Taken Type Unobtainable 02/15/19 02/15/19 Unknown History Active Meds: Active Medications Acetaminophen (Acetaminophen 325 Mg Tab) 650 mg PO Q4H PRN PRN Reason: Pain MILD(1-3)/Fever >100.5/ELMORE Dextrose (Dextrose 50% In Water (25gm) 50 Ml Syringe) 0 ml IV Q30MIN PRN; Protocol PRN Reason: Hypoglycemia Sodium Chloride (Nacl 0.9%) 100 mls @ 999 mls/hr IV JUAN PRN PRN Reason: Hypotension Pantoprazole Sodium 80 mg/ (Sodium Chloride) 100 mls @ 10 mls/hr IV DIRECT HELGA Insulin Human Lispro (Insulin Lispro 100 Unit/Ml) 0 unit SUB-Q ACHS [facility]; Protocol Last Admin: 10/08/21 08:42 Dose: Not Given Documented by: Magnesium Hydroxide (Magnesium Hydroxide (Mom) Oral Liqd Udc) 30 ml PO Q4H PRN PRN Reason: Constipation Morphine Sulfate (Morphine 2 Mg/1 Ml Inj) 2 mg IV Q4H PRN PRN Reason: Pain, Moderate (4-6) Last Admin: 10/07/21 21:42 Dose: 2 mg Documented by: Morphine Sulfate (Morphine 4 Mg/1 Ml Inj) 4 mg IV Q4H PRN PRN Reason: Pain , Severe (7-10) Ondansetron HCl (Ondansetron 4 Mg/2 Ml Inj) 4 mg IV Q8H PRN PRN Reason: Nausea And Vomiting Sodium Chloride (Sodium Chloride 0.9% 10 Ml Flush Syringe) 10 ml IV BID HEL[facility] Last Admin: 10/08/21 09:05 Dose: 10 ml Documented by: Sodium Chloride (Sodium Chloride 0.9% 10 Ml Flush Syringe) 10 ml IV PRN PRN PRN Reason: LINE FLUSH Review of Systems All systems: negative (As per the HPI) Physical Examination Vital Signs Temp Pulse Resp BP Pulse Ox 98.4 F 75 19 140/82 99 10/06/21 23:08 10/06/21 23:08 10/06/21 23:08 10/06/21 23:08 10/06/21 23:08 General appearance: cachectic HEENT: Positive: PERRL, EOMI Neck: Positive: neck supple Cardiac: Positive: Reg Rate and Rhythm Lungs: Positive: clear to auscultation Neuro: Positive: Grossly Intact Abdomen: Positive: Soft Extremities: Present: normal Results 10/08/21 05:55 10/08/21 05:55 Coagulation 10/08/21 Range/Units 05:55 PT 17.2 H (12.2-14.9) Sec. INR 1.27 H (0.87-1.13) Lipids 10/07/21 Range/Units 17:24 Triglycerides 133 (2-149) mg/dL Cholesterol 79 (50-199) mg/dL HDL Cholesterol 24 L (40-59) mg/dL Cholesterol/HDL Ratio 3.29 % CBC 10/07/21 10/08/21 10/08/21 Range/Units 15:25 00:57 05:55 WBC 8.0 (4.5-11.0) K/mm3 RBC 2.19 L (3.65-5.03) M/mm3 Hgb 7.4 L 6.6 L 7.1 L (11.8-15.2) gm/dl Hct 22.3 L 20.5 L 21.6 L (35.5-45.6) % Plt Count 221 (140-440) K/mm3 Lymph # (Auto) 1.3 (1.2-5.4) K/mm3 [place] # (Auto) 0.7 (0.0-0.8) K/mm3 Eos # (Auto) 0.4 (0.0-0.4) K/mm3 Baso # (Auto) 0.1 (0.0-0.1) K/mm3 Comprehensive Metabolic Panel 10/08/21 Range/Units 05:55 Sodium 138 (137-145) mmol/L Potassium 4.6 (3.6-5.0) mmol/L Chloride 96.2 L (98-107) mmol/L Carbon Dioxide 26 (22-30) mmol/L BUN 82 H (9-20) mg/dL Creatinine 4.0 H (0.8-1.3) mg/dL Glucose 134 H (75-100) mg/dL Calcium 8.8 (8.4-10.2) mg/dL - Imaging and Cardiology Echo: report reviewed (07/2021 normal LV function moderate tricuspid rotation RVSP of 40 to 50 mmHg) Cardiac cath: report reviewed (2018 left main 20% patent LAD circumflex patent RCA patent normal LV function) EKG interpretations - Telemetry EKG Rhythm: Sinus Rhythm - EKG Sinus rhythms and dysrhythmias: sinus rhythm (Sinus nonspecific ST-T's no change from previous EKG) Assessment and Plan 70-year-old male with chronic anemia presents with GI bleed with cauterization maintain hemoglobin above 7 as per GI. Patient was in [place] in July for syncope was discharged with aspirin full dose and high-dose Lipitor not on any AV steve blocking agents secondary to low blood pressure. End-stage renal disease on hemodialysis diabetes. Patient normally function echocardiogram with moderate pulmonary pretension. No change in EKG. Treat medically for the abnormal troponin repeat echocardiogram. Difficult start beta-blockers or MANI or ARB secondary low blood pressure. In view of acute anemia unable to start anticoagulation or antiplatelet therapy. Continue diabetic meds and statin - Patient Problems (1) Diabetes mellitus Current Visit: Yes Status: Chronic Qualifiers: Diabetes mellitus type: type 1 (2) CAD (coronary artery disease) Current Visit: Yes Status: Chronic Qualifiers: Coronary Disease-Associated Artery/Lesion type: [place] artery Associated angina: with stable angina (3) Hyperlipemia, mixed Current Visit: Yes Status: Chronic (4) Non-STEMI (non-ST elevated myocardial infarction) Current Visit: Yes Status: Acute Plan to address problem: type 2 (5) Anemia Current Visit: Yes Status: Acute Qualifiers: Chronic kidney disease stage: on chronic dialysis (6) ESRD (end stage renal disease) Current Visit: Yes Status: Acute (7) GI bleed Current Visit: Yes Status: Acute Qualifiers: GI bleed type/associated pathology: duodenal ulcer Qualified Code(s): K26.4 - Chronic or unspecified duodenal ulcer with hemorrhage
[2021-10-08 13:23] LABS: Hematocrit 20.3 % (35.5-45.6); Hemoglobin 6.6 gm/dl (11.8-15.2)
--- NOTE | 2021-10-08 14:23 | Progress Note ---
Assessment and Plan 70-year-old male with diabetes orthostatic hypotension end-stage renal disease on hemodialysis came to the hospital for blackened stools. A/P -- GI bleed s/p EGD due to Ulcerative esophagitis He has been commenced on Protonix. consulted gastroenterology -- Abdominal pain Etiology unclear Possibly secondary to gastritis. Patient placed on proton pump inhibitor. -- Anemia due to GI bleed We will monitor CBC. transfuse as needed --h/o SAH, CT head unremarkable --Abnormal troponin Patient had normal LV function echocardiogram in July 2021 with moderate pulmonary pretension. Patient cardiac cath in 2017 reveals left main 20% and patent LAD circumflex and RCA with normal LV function. Patient denies any chest pain or shortness of breath. Cardiology consulted, treat medically -- Chronic respiratory failure Patient has known history of CHF/COPD On home oxygen. -- ESRD (end stage renal disease) Patient gets dialysis on Tuesdays, and Saturdays. Consult placed to nephrology for evaluation. --DVT prophylaxis Patient placed on sequential compression device. --Full code status Daily clinical course: 10/07/21: Appeared to be slightly confused Discussed with [place] physician and patient does have history of subarachnoid hemorrhage due to trauma back in July this year Will get serial troponin, EKG and CT head We will follow H&H, GI consult pending Continue PPI IV 10/08/21: s/p EGD showed Ulcerative esophagitis with adherent clot and underlying oozing of blood s/p epi injection with hemostasis. 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 cont IV PPI drip x 24 hours and then switch to bid dosing tomorrow if no further bleeding/stable symptoms -okay for clears today -monitor H/H and transfuse as indicated to keep hgb > 7 -will need repeat endoscopy in 2 months to assess for healing and biopsy for underlying de los santos's if indicated Subjective Date of service: 10/08/21 Interval history: Patient seen and examined denies any chest pain vitals stable discussed with RN Objective - Exam Narrative Exam: General appearance: Present: mild distress, well-nourished - EENT Eyes: Present: PERRL, EOM intact. Absent: scleral icterus ENT: hearing intact, clear oral mucosa, dentition normal - Neck Neck: Present: supple, normal ROM - Respiratory Respiratory effort: normal Respiratory: bilateral: rales - Cardiovascular Rhythm: regular Heart Sounds: Present: S1 & S2. Absent: gallop, systolic murmur, diastolic murmur, rub, click - Extremities Extremities: no ischemia, pulses intact, pulses symmetrical, No edema, normal temperature, normal color, Full ROM Peripheral Pulses: within normal limits - Abdominal General gastrointestinal: Present: soft, non-tender, non-distended, normal bowel sounds. Absent: mass - Integumentary Integumentary: Present: clear, warm, dry. Absent: rash - Musculoskeletal Musculoskeletal: strength equal bilaterally - Psychiatric Psychiatric: appropriate mood/affect, cooperative - Neurologic Neurologic: CNII-XII intact, no focal deficits, moves all extremities - Constitutional Vitals: Vital Signs - 12hr 10/08/21 10/08/21 10/08/21 03:22 04:55 08:17 Temperature 97.9 F 98.1 F Pulse Rate 76 78 Respiratory 17 18 18 Rate Blood Pressure 107/54 107/48 O2 Sat by Pulse 99 96 98 Oximetry 10/08/21 10/08/21 10/08/21 09:17 09:43 10:00 Temperature 98.3 F Pulse Rate 82 74 81 Respiratory 16 15 16 Rate Blood Pressure 124/50 105/63 139/56 O2 Sat by Pulse 98 99 0 L Oximetry 10/08/21 10:15 Temperature Pulse Rate 84 Respiratory 16 Rate Blood Pressure 130/54 O2 Sat by Pulse 100 Oximetry - Labs CBC & Chem 7: 10/10/21 06:01 10/10/21 06:01 Labs: Abnormal lab results 10/07/21 10/07/21 10/07/21 Range/Units 00:07 15:25 16:37 RBC (3.65-5.03) M/mm3 Hgb 7.4 L (11.8-15.2) gm/dl Hct 22.3 L (35.5-45.6) % MCV (84-94) fl MCH (28-32) pg RDW (13.2-15.2) % [place] % (Auto) (0.0-7.3) % Eos % (Auto) (0.0-4.3) % PT (12.2-14.9) Sec. INR (0.87-1.13) Chloride (98-107) mmol/L BUN (9-20) mg/dL Creatinine (0.8-1.3) mg/dL Glucose (75-100) mg/dL POC Glucose 248 H (70-105) mg/dL Troponin T (0.00-0.029) ng/mL LDL Cholesterol Direct (50-130) mg/dL HDL Cholesterol (40-59) mg/dL Crossmatch See Detail 10/07/21 10/07/21 10/08/21 Range/Units 17:24 20:19 00:57 RBC (3.65-5.03) M/mm3 Hgb (11.8-15.2) gm/dl Hct (35.5-45.6) % MCV (84-94) fl MCH (28-32) pg RDW (13.2-15.2) % [place] % (Auto) (0.0-7.3) % Eos % (Auto) (0.0-4.3) % PT (12.2-14.9) Sec. INR (0.87-1.13) Chloride (98-107) mmol/L BUN (9-20) mg/dL Creatinine (0.8-1.3) mg/dL Glucose (75-100) mg/dL POC Glucose 320 H (70-105) mg/dL Troponin T 0.149 H* 0.190 H* D (0.00-0.029) ng/mL LDL Cholesterol Direct 27 L (50-130) mg/dL HDL Cholesterol 24 L (40-59) mg/dL Crossmatch 10/08/21 10/08/21 10/08/21 Range/Units 00:57 05:55 05:55 RBC 2.19 L (3.65-5.03) M/mm3 Hgb 6.6 L 7.1 L (11.8-15.2) gm/dl Hct 20.5 L 21.6 L (35.5-45.6) % MCV 99 H (84-94) fl MCH 33 H (28-32) pg RDW 18.9 H (13.2-15.2) % [place] % (Auto) 9.2 H (0.0-7.3) % Eos % (Auto) 4.5 H (0.0-4.3) % PT 17.2 H (12.2-14.9) Sec. INR 1.27 H (0.87-1.13) Chloride (98-107) mmol/L BUN (9-20) mg/dL Creatinine (0.8-1.3) mg/dL Glucose (75-100) mg/dL POC Glucose (70-105) mg/dL Troponin T (0.00-0.029) ng/mL LDL Cholesterol Direct (50-130) mg/dL HDL Cholesterol (40-59) mg/dL Crossmatch 10/08/21 10/08/21 10/08/21 Range/Units 05:55 07:38 11:18 RBC (3.65-5.03) M/mm3 Hgb (11.8-15.2) gm/dl Hct (35.5-45.6) % MCV (84-94) fl MCH (28-32) pg RDW (13.2-15.2) % [place] % (Auto) (0.0-7.3) % Eos % (Auto) (0.0-4.3) % PT (12.2-14.9) Sec. INR (0.87-1.13) Chloride 96.2 L (98-107) mmol/L BUN 82 H (9-20) mg/dL Creatinine 4.0 H (0.8-1.3) mg/dL Glucose 134 H (75-100) mg/dL POC Glucose 128 H 137 H (70-105) mg/dL Troponin T (0.00-0.029) ng/mL LDL Cholesterol Direct (50-130) mg/dL HDL Cholesterol (40-59) mg/dL Crossmatch 10/08/21 Range/Units 12:57 RBC (3.65-5.03) M/mm3 Hgb 6.6 L (11.8-15.2) gm/dl Hct 20.3 L (35.5-45.6) % MCV (84-94) fl MCH (28-32) pg RDW (13.2-15.2) % [place] % (Auto) (0.0-7.3) % Eos % (Auto) (0.0-4.3) % PT (12.2-14.9) Sec. INR (0.87-1.13) Chloride (98-107) mmol/L BUN (9-20) mg/dL Creatinine (0.8-1.3) mg/dL Glucose (75-100) mg/dL POC Glucose (70-105) mg/dL Troponin T (0.00-0.029) ng/mL LDL Cholesterol Direct (50-130) mg/dL HDL Cholesterol (40-59) mg/dL Crossmatch HEART Score - HEART Score Troponin: Troponin T 0.190 ng/mL (0.00-0.029) H* D 10/08/21 00:57
[2021-10-08] MEDS: PANTOPRAZOLE 80 MG in SODIUM CHLORIDE 0.9% 100 ML IV SCH (14:43)
[2021-10-08] MEDS ORDERED: EPOETIN ALFA-EPBX 20,000 UNIT/1 ML VIAL IV PRN (18:01)
--- NOTE | 2021-10-08 20:46 | Progress Note ---
Assessment and Plan Assessment - End-stage renal disease on hemodialysis - Hyperkalemia - Anemia of ESRD + GI bleed? - [place] emesis - Hyperparathyroidism - Hyperphosphatemia Recommendations - HD yesterday was terminated 30 min early due to soft pressures - Continue TTS with close monitoring of hemodynamic status - Monitor labs and volume status daily and assess need for additional dialysis session - Epogen with HD - Transfuse for hgb < 7 - Continue phosphorus binders - ESRD diet with 1.4 g/kg per day protein - Renally dose medication for creatinine clearance less than 15 cc/min - GI note and endoscopy result reviewed Subjective Date of service: 10/08/21 Principal diagnosis: [place] emesis Interval history: S/p endoscopy today Objective - Exam Narrative Exam: General: No acute distress HEENT: Oral mucosa moist Neck: Supple, no JVD Chest: Clear to auscultation bilaterally Heart: RRR, S1 and S2, no pericardial rub Abdomen: Soft, nontender, no renal bruit Extremity: No peripheral cyanosis, edema Neurological: Alert, awake, no asterixis Dermatology: No skin rash Psych: No agitation Musculoskeletal: No joint effusion - Vital Signs Vital signs: Vital Signs - 12hr 10/08/21 10/08/21 10/08/21 09:17 09:43 10:00 Temperature 98.3 F Pulse Rate 82 74 81 Pulse Rate [ From Monitor] Respiratory 16 15 16 Rate Blood Pressure 124/50 105/63 139/56 O2 Sat by Pulse 98 99 0 L Oximetry 10/08/21 10/08/21 10/08/21 10:15 15:57 16:32 Temperature 97.5 F L Pulse Rate 84 80 Pulse Rate [ 80 From Monitor] Respiratory 16 18 18 Rate Blood Pressure 130/54 110/48 O2 Sat by Pulse 100 96 98 Oximetry - Lab 10/08/21 12:57 10/08/21 05:55 Most recent lab results Calcium 8.8 mg/dL (8.4-10.2) 10/08/21 05:55 Magnesium 2.00 mg/dL (1.7-2.3) 10/07/21 00:07 Medications & Allergies - Medications Allergies/Adverse Reactions: Allergies Sulfa (Sulfonamide Antibiotics) Allergy (Verified 10/06/21 23:07) Unknown Home Medications: Home Medications Medication Instructions Recorded Confirmed Last Taken Type Unobtainable 02/15/19 02/15/19 Unknown History Active Medications: Generic Name Dose Route Start Last Admin Trade Name Freq PRN Reason Stop Dose Admin Acetaminophen 650 mg 10/07/21 02:27 Acetaminophen 325 Mg Tab PO Q4H PRN Pain MILD(1-3)/Fever >100.5/ELMORE Atorvastatin Calcium 80 mg 10/08/21 22:00 Atorvastatin 40 Mg Tab PO QHS HELGA Dextrose 0 ml 10/07/21 02:27 Dextrose 50% In Water (25gm) 50 Ml Syringe IV Q30MIN PRN Hypoglycemia Protocol Sodium Chloride 100 mls @ 999 mls/hr 10/07/21 08:55 Nacl 0.9% IV JUAN PRN Hypotension Pantoprazole Sodium 80 mg/ 100 mls @ 10 mls/hr 10/08/21 11:00 10/08/21 14:43 Sodium Chloride IV 8 mg/hr DIRECT HELGA 10 mls/hr Administration 8 MG/HR Insulin Human Lispro 0 unit 10/07/21 07:30 10/08/21 17:05 Insulin Lispro 100 Unit/Ml SUB-Q 2 unit ACHS HELGA Administration Protocol Magnesium Hydroxide 30 ml 10/07/21 02:27 Magnesium Hydroxide (Mom) Oral Liqd Udc PO Q4H PRN Constipation Morphine Sulfate 2 mg 10/07/21 02:27 10/07/21 21:42 Morphine 2 Mg/1 Ml Inj IV 2 mg Q4H PRN Administration Pain, Moderate (4-6) Morphine Sulfate 4 mg 10/07/21 02:27 Morphine 4 Mg/1 Ml Inj IV Q4H PRN Pain , Severe (7-10) Ondansetron HCl 4 mg 10/07/21 02:27 Ondansetron 4 Mg/2 Ml Inj IV Q8H PRN Nausea And Vomiting Sodium Chloride 10 ml 10/07/21 10:00 10/08/21 09:05 Sodium Chloride 0.9% 10 Ml Flush Syringe IV 10 ml BID HELGA Administration Sodium Chloride 10 ml 10/07/21 02:27 Sodium Chloride 0.9% 10 Ml Flush Syringe IV PRN PRN LINE FLUSH
[2021-10-08 23:17] LABS: Hematocrit 21.5 % (35.5-45.6); Hemoglobin 6.9 gm/dl (11.8-15.2)
[2021-10-09] MEDS: PANTOPRAZOLE 80 MG in SODIUM CHLORIDE 0.9% 100 ML IV SCH ×3 (00:17→23:09)
[2021-10-09] MEDS: INSULIN LISPRO 100 UNIT/ML SUB-Q SCH ×4 (07:57→22:55)
--- NOTE | 2021-10-09 09:43 | Gastroenterology Progress Note ---
Assessment and Plan UGI bleed - s/p egd with ulcerative esophagitis with adherent clot which was removed and revealed oozing of blood s/p epi injection with hemostasis. no overt bleeding since then. monitor labs, cont IV PPI today and switch to bid dosing tomorrow. can advance diet today. Subjective Date of service: 10/09/21 Principal diagnosis: [place] emesis Interval history: pt feeling well w/o new gi complaints, no overt gi bleeding since procedure Objective - Constitutional Vitals: Temp Pulse Resp BP Pulse Ox 97.6 F 65 17 145/56 100 10/09/21 06:16 10/09/21 06:16 10/09/21 06:16 10/09/21 06:16 10/09/21 06:16 General appearance: no acute distress - Respiratory Respiratory effort: normal Respiratory: bilateral: CTA - Cardiovascular Rhythm: regular Heart Sounds: Present: S1 & S2 - Gastrointestinal General gastrointestinal: Present: soft, non-tender, non-distended - Neurologic Neurological: alert and oriented x3 - Psychiatric Psychiatric: appropriate mood/affect - Labs CBC & Chem 7: 10/08/21 22:48 10/08/21 05:55 Labs: Laboratory Results - last 24 hr 10/07/21 10/08/21 10/08/21 00:07 11:18 12:57 Hgb 6.6 L Hct 20.3 L POC Glucose 137 H Blood Type O POSITIVE Antibody Screen Positive Antibody Identification Anti-Fya Crossmatch See Detail 10/08/21 10/08/21 10/08/21 15:32 20:16 22:48 Hgb 6.9 L Hct 21.5 L POC Glucose 173 H 169 H Blood Type Antibody Screen Antibody Identification Crossmatch 10/09/21 07:25 Hgb Hct POC Glucose 105 Blood Type Antibody Screen Antibody Identification Crossmatch
[2021-10-09 10:05] LABS: Hematocrit 25.4 % (35.5-45.6); Hemoglobin 8.4 gm/dl (11.8-15.2); Mean Corpuscular HGB Conc 33 % (32-34); Mean Corpuscular Volume 97 fl (84-94); Platelet Count 193 K/mm3 (140-440); Red Blood Count 2.62 M/mm3 (3.65-5.03); Red Cell Distribution Width 20.5 % (13.2-15.2)
[2021-10-09 10:08] LABS: Calcium 8.6 mg/dL (8.4-10.2)
--- NOTE | 2021-10-09 10:12 | Progress Note ---
Subjective Date of service: 10/09/21 Principal diagnosis: [place] emesis Interval history: Assessment - End-stage renal disease on hemodialysis - Hyperkalemia - Anemia of ESRD + GI bleed? - [place] emesis - Hyperparathyroidism - Hyperphosphatemia Recommendations - HD to Continue TTS with close monitoring of hemodynamic status no heparin with hd - Monitor labs and volume status daily and assess need for additional dialysis session - Epogen with HD - Transfuse for hgb < 7 - Continue phosphorus binders - ESRD diet with 1.4 g/kg per day protein - Renally dose medication for creatinine clearance less than 15 cc/min - GI note and endoscopy result reviewed stable for dc from renal standpoint Subjective Principal diagnosis: [place] emesis Interval history: labs and chart reviewed Objective - Exam Narrative Exam: General: No acute distress HEENT: Oral mucosa moist Neck: Supple, no JVD Chest: Clear to auscultation bilaterally Heart: RRR, S1 and S2, no pericardial rub Abdomen: Soft, nontender, no renal bruit Extremity: No peripheral cyanosis, edema Neurological: Alert, awake, no asterixis Dermatology: No skin rash Psych: No agitation Musculoskeletal: No joint effusion Objective - Vital Signs Vital signs: Vital Signs - 12hr 10/08/21 10/09/21 10/09/21 23:16 02:21 02:34 Temperature 98.1 F 97.3 F L 97.3 F L Pulse Rate 75 78 70 Respiratory 18 17 17 Rate Blood Pressure 114/53 103/49 130/50 O2 Sat by Pulse 99 100 100 Oximetry 10/09/21 10/09/21 10/09/21 02:36 03:06 03:32 Temperature 97.5 F L 97.5 F L 97.6 F Pulse Rate 59 L 73 70 Respiratory 16 17 16 Rate Blood Pressure 125/50 140/53 128/31 O2 Sat by Pulse 100 99 99 Oximetry 10/09/21 10/09/21 10/09/21 03:36 04:00 04:48 Temperature 97.5 F L 97.5 F L Pulse Rate 58 L 58 L Respiratory 16 17 16 Rate Blood Pressure 134/56 138/56 O2 Sat by Pulse 100 100 100 Oximetry 10/09/21 10/09/21 05:18 06:16 Temperature 97.3 F L 97.6 F Pulse Rate 60 65 Respiratory 17 17 Rate Blood Pressure 135/52 145/56 O2 Sat by Pulse 99 100 Oximetry - Lab 10/09/21 09:36 10/09/21 09:36 Most recent lab results Calcium 8.6 mg/dL (8.4-10.2) 10/09/21 09:36 Magnesium 2.00 mg/dL (1.7-2.3) 10/07/21 00:07 Medications & Allergies - Medications Allergies/Adverse Reactions: Allergies Sulfa (Sulfonamide Antibiotics) Allergy (Verified 10/06/21 23:07) Unknown Home Medications: Home Medications Medication Instructions Recorded Confirmed Last Taken Type Unobtainable 02/15/19 02/15/19 Unknown History Active Medications: Generic Name Dose Route Start Last Admin Trade Name Freq PRN Reason Stop Dose Admin Acetaminophen 650 mg 10/07/21 02:27 10/09/21 01:05 Acetaminophen 325 Mg Tab PO 650 mg Q4H PRN Administration Pain MILD(1-3)/Fever >100.5/ELMORE Atorvastatin Calcium 80 mg 10/08/21 22:00 10/08/21 23:45 Atorvastatin 40 Mg Tab PO 80 mg QHS HELGA Administration Dextrose 0 ml 10/07/21 02:27 Dextrose 50% In Water (25gm) 50 Ml Syringe IV Q30MIN PRN Hypoglycemia Protocol Sodium Chloride 100 mls @ 999 mls/hr 10/07/21 08:55 Nacl 0.9% IV JUAN PRN Hypotension Pantoprazole Sodium 80 mg/ 100 mls @ 10 mls/hr 10/08/21 11:00 10/09/21 00:17 Sodium Chloride IV 8 mg/hr DIRECT HELGA 10 mls/hr Administration 8 MG/HR Insulin Human Lispro 0 unit 10/07/21 07:30 10/09/21 07:57 Insulin Lispro 100 Unit/Ml SUB-Q Not Given ACHS HELGA Protocol Magnesium Hydroxide 30 ml 10/07/21 02:27 Magnesium Hydroxide (Mom) Oral Liqd Udc PO Q4H PRN Constipation Morphine Sulfate 2 mg 10/07/21 02:27 10/07/21 21:42 Morphine 2 Mg/1 Ml Inj IV 2 mg Q4H PRN Administration Pain, Moderate (4-6) Morphine Sulfate 4 mg 10/07/21 02:27 Morphine 4 Mg/1 Ml Inj IV Q4H PRN Pain , Severe (7-10) Ondansetron HCl 4 mg 10/07/21 02:27 Ondansetron 4 Mg/2 Ml Inj IV Q8H PRN Nausea And Vomiting Sodium Chloride 10 ml 10/07/21 10:00 10/08/21 23:45 Sodium Chloride 0.9% 10 Ml Flush Syringe IV 10 ml BID HELGA Administration Sodium Chloride 10 ml 10/07/21 02:27 Sodium Chloride 0.9% 10 Ml Flush Syringe IV PRN PRN LINE FLUSH
--- NOTE | 2021-10-09 13:46 | Progress Note ---
Assessment and Plan 70-year-old male with diabetes orthostatic hypotension end-stage renal disease on hemodialysis came to the hospital for blackened stools. Patient is found to have an ulcer in esophagus s/p cauterization ESRD on HD- nephrology following NSTEMI type 2 Anemia due to GI Bleed Ulcerative esophagitiss/p cauterization- GI following Orthostatic hypotensison CAD Echo 07/2021 -normal LV function moderate tricuspid rotation RVSP of 40 to 50 mmHg Cardiac cath 2017 -left main 20% patent LAD circumflex patent RCA patent normal LV function Plan: Holding BB or Rigoberto/ARB due to low BP No anticoagulation or antiplatelet due to GI bleed Continue DM meds and statin Echo pending Patient seen in conjunction with Dr. Wiley who agrees with this plan of care. We will continue to follow - Patient Problems (1) Anemia Current Visit: Yes Status: Acute Qualifiers: Chronic kidney disease stage: on chronic dialysis (2) ESRD (end stage renal disease) Current Visit: Yes Status: Acute (3) GI bleed Current Visit: Yes Status: Acute Qualifiers: GI bleed type/associated pathology: duodenal ulcer Qualified Code(s): K26.4 - Chronic or unspecified duodenal ulcer with hemorrhage (4) Non-STEMI (non-ST elevated myocardial infarction) Current Visit: Yes Status: Acute (5) CAD (coronary artery disease) Current Visit: Yes Status: Chronic Qualifiers: Coronary Disease-Associated Artery/Lesion type: [place] artery Associated angina: with stable angina (6) Diabetes mellitus Current Visit: Yes Status: Chronic Qualifiers: Diabetes mellitus type: type 1 (7) Hyperlipemia, mixed Current Visit: Yes Status: Chronic Subjective Date of service: 10/09/21 Principal diagnosis: [place] emesis Interval history: Patient resting in bed in no acute distress. 1st degree block 70s on monitor Objective Vital Signs Temp Pulse Pulse Resp BP Pulse Ox 10/09/21 11:51 95 10/09/21 06:16 97.6 F 65 17 145/56 100 10/09/21 05:18 97.3 F L 60 17 135/52 99 10/09/21 04:48 97.5 F L 58 L 16 138/56 100 10/09/21 04:00 17 100 10/09/21 03:36 97.5 F L 58 L 16 134/56 100 10/09/21 03:32 97.6 F 70 16 128/31 99 10/09/21 03:06 97.5 F L 73 17 140/53 99 10/09/21 02:36 97.5 F L 59 L 16 125/50 100 10/09/21 02:34 97.3 F L 70 17 130/50 100 10/09/21 02:21 97.3 F L 78 17 103/49 100 10/08/21 23:16 98.1 F 75 18 114/53 99 10/08/21 21:58 98 10/08/21 19:12 97.6 F 76 16 94/46 98 10/08/21 16:32 97.5 F L 80 18 110/48 98 10/08/21 15:57 80 18 96 - Physical Examination General: No Apparent Distress HEENT: Positive: PERRL, EOMI Neck: Positive: neck supple Cardiac: Positive: Reg Rate and Rhythm Lungs: Positive: Normal Breath Sounds Neuro: Positive: Grossly Intact Abdomen: Positive: Soft Extremities: Present: normal - Labs and Meds CBC 10/08/21 10/09/21 Range/Units 22:48 09:36 WBC 6.0 (4.5-11.0) K/mm3 RBC 2.62 L (3.65-5.03) M/mm3 Hgb 6.9 L 8.4 L (11.8-15.2) gm/dl Hct 21.5 L 25.4 L (35.5-45.6) % Plt Count 193 (140-440) K/mm3 Comprehensive Metabolic Panel 10/09/21 Range/Units 09:36 Sodium 134 L (137-145) mmol/L Potassium 4.9 (3.6-5.0) mmol/L Chloride 94.1 L (98-107) mmol/L Carbon Dioxide 23 (22-30) mmol/L BUN 95 H (9-20) mg/dL Creatinine 5.3 H (0.8-1.3) mg/dL Glucose 169 H (75-100) mg/dL Calcium 8.6 (8.4-10.2) mg/dL - Imaging and Cardiology Echo: report reviewed (07/2021 normal LV function moderate tricuspid rotation RVSP of 40 to 50 mmHg) Cardiac cath: report reviewed (2018 left main 20% patent LAD circumflex patent RCA patent normal LV function) - Telemetry EKG Rhythm: Sinus Rhythm - EKG Sinus rhythms and dysrhythmias: sinus rhythm (Sinus nonspecific ST-T's no change from previous EKG) AV and intraventricular conduction: 1 AV block
--- NOTE | 2021-10-09 13:57 | Progress Note ---
Assessment and Plan 70-year-old male with diabetes orthostatic hypotension end-stage renal disease on hemodialysis came to the hospital for blackened stools. A/P -- GI bleed s/p EGD due to Ulcerative esophagitis He has been commenced on Protonix. consulted gastroenterology -- Abdominal pain Etiology unclear Possibly secondary to gastritis. Patient placed on proton pump inhibitor. -- Anemia due to GI bleed We will monitor CBC. transfuse as needed --h/o SAH, CT head unremarkable --Possible dementia, supportive care --Abnormal troponin Patient had normal LV function echocardiogram in July 2021 with moderate pulmonary pretension. Patient cardiac cath in 2017 reveals left main 20% and patent LAD circumflex and RCA with normal LV function. Patient denies any chest pain or shortness of breath. Cardiology consulted, treat medically -- Chronic respiratory failure Patient has known history of CHF/COPD On home oxygen. -- ESRD (end stage renal disease) Patient gets dialysis on Tuesdays, and Saturdays. Consult placed to nephrology for evaluation. --DVT prophylaxis Patient placed on sequential compression device. --Full code status Daily clinical course: 10/07/21: Appeared to be slightly confused Discussed with [place] physician and patient does have history of subarachnoid hemorrhage due to trauma back in July this year Will get serial troponin, EKG and CT head We will follow H&H, GI consult pending Continue PPI IV 10/08/21: s/p EGD showed Ulcerative esophagitis with adherent clot and underlying oozing of blood s/p epi injection with hemostasis. 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 cont IV PPI drip x 24 hours and then switch to bid dosing tomorrow if no further bleeding/stable symptoms -okay for clears today -monitor H/H and transfuse as indicated to keep hgb > 7 -will need repeat endoscopy in 2 months to assess for healing and biopsy for underlying de los santos's if indicated 10/09: Hb dropped to 6.9 - transfuse PRBC, HD today, PER GI cont IV PPI today and switch to bid dosing tomorrow. can advance diet today. follow h/h Subjective Date of service: 10/09/21 Principal diagnosis: Coffe ground emesis Interval history: Patient seen and examined denies any chest pain vitals stable discussed with RN Objective - Exam Narrative Exam: General appearance: Present: mild distress, well-nourished - EENT Eyes: Present: PERRL, EOM intact. Absent: scleral icterus ENT: hearing intact, clear oral mucosa, dentition normal - Neck Neck: Present: supple, normal ROM - Respiratory Respiratory effort: normal Respiratory: bilateral: rales - Cardiovascular Rhythm: regular Heart Sounds: Present: S1 & S2. Absent: gallop, systolic murmur, diastolic murmur, rub, click - Extremities Extremities: no ischemia, pulses intact, pulses symmetrical, No edema, normal temperature, normal color, Full ROM Peripheral Pulses: within normal limits - Abdominal General gastrointestinal: Present: soft, non-tender, non-distended, normal bowel sounds. Absent: mass - Integumentary Integumentary: Present: clear, warm, dry. Absent: rash - Musculoskeletal Musculoskeletal: strength equal bilaterally - Psychiatric Psychiatric: appropriate mood/affect, cooperative - Neurologic Neurologic: CNII-XII intact, no focal deficits, moves all extremities - Constitutional Vitals: Vital Signs - 12hr 10/09/21 10/09/21 10/09/21 02:21 02:34 02:36 Temperature 97.3 F L 97.3 F L 97.5 F L Pulse Rate 78 70 59 L Respiratory 17 17 16 Rate Blood Pressure 103/49 130/50 125/50 O2 Sat by Pulse 100 100 100 Oximetry 10/09/21 10/09/21 10/09/21 03:06 03:32 03:36 Temperature 97.5 F L 97.6 F 97.5 F L Pulse Rate 73 70 58 L Respiratory 17 16 16 Rate Blood Pressure 140/53 128/31 134/56 O2 Sat by Pulse 99 99 100 Oximetry 10/09/21 10/09/21 10/09/21 04:00 04:48 05:18 Temperature 97.5 F L 97.3 F L Pulse Rate 58 L 60 Respiratory 17 16 17 Rate Blood Pressure 138/56 135/52 O2 Sat by Pulse 100 100 99 Oximetry 10/09/21 10/09/21 06:16 11:51 Temperature 97.6 F Pulse Rate 65 Respiratory 17 Rate Blood Pressure 145/56 O2 Sat by Pulse 100 95 Oximetry - Labs CBC & Chem 7: 10/10/21 06:01 10/10/21 06:01 Labs: Abnormal lab results 10/07/21 10/08/21 10/08/21 Range/Units 00:07 15:32 20:16 RBC (3.65-5.03) M/mm3 Hgb (11.8-15.2) gm/dl Hct (35.5-45.6) % MCV (84-94) fl RDW (13.2-15.2) % Sodium (137-145) mmol/L Chloride (98-107) mmol/L BUN (9-20) mg/dL Creatinine (0.8-1.3) mg/dL Glucose (75-100) mg/dL POC Glucose 173 H 169 H (70-105) mg/dL Crossmatch See Detail 10/08/21 10/09/21 10/09/21 Range/Units 22:48 09:36 09:36 RBC 2.62 L (3.65-5.03) M/mm3 Hgb 6.9 L 8.4 L (11.8-15.2) gm/dl Hct 21.5 L 25.4 L (35.5-45.6) % MCV 97 H (84-94) fl RDW 20.5 H (13.2-15.2) % Sodium 134 L (137-145) mmol/L Chloride 94.1 L (98-107) mmol/L BUN 95 H (9-20) mg/dL Creatinine 5.3 H (0.8-1.3) mg/dL Glucose 169 H (75-100) mg/dL POC Glucose (70-105) mg/dL Crossmatch 10/09/21 Range/Units 11:52 RBC (3.65-5.03) M/mm3 Hgb (11.8-15.2) gm/dl Hct (35.5-45.6) % MCV (84-94) fl RDW (13.2-15.2) % Sodium (137-145) mmol/L Chloride (98-107) mmol/L BUN (9-20) mg/dL Creatinine (0.8-1.3) mg/dL Glucose (75-100) mg/dL POC Glucose 151 H (70-105) mg/dL Crossmatch HEART Score - HEART Score Troponin: Troponin T 0.190 ng/mL (0.00-0.029) H* D 10/08/21 00:57
[2021-10-10 06:18] LABS: Basophils # (Auto) 0.1 K/mm3 (0.0-0.1); Basophils % (Auto) 1.3 % (0.0-1.8); Eosinophils # (Auto) 0.2 K/mm3 (0.0-0.4); Eosinophils % (Auto) 2.4 % (0.0-4.3); Hemoglobin 8.8 gm/dl (11.8-15.2); Lymphocytes # (Auto) 0.6 K/mm3 (1.2-5.4); Lymphocytes % (Auto) 9.1 % (13.4-35.0); Mean Corpuscular HGB Conc 31 % (32-34); Mean Corpuscular Volume 97 fl (84-94); Monocytes # (Auto) 0.6 K/mm3 (0.0-0.8); Monocytes % (Auto) 9.1 % (0.0-7.3); Platelet Count 193 K/mm3 (140-440); Red Blood Count 2.89 M/mm3 (3.65-5.03)
[2021-10-10 06:22] LABS: Red Cell Distribution Width 20.8 % (13.2-15.2)
[2021-10-10 06:35] LABS: Calcium 8.7 mg/dL (8.4-10.2)
[2021-10-10] MEDS: INSULIN LISPRO 100 UNIT/ML SUB-Q SCH ×3 (07:30→21:45)
[2021-10-10] MEDS: PANTOPRAZOLE 40 MG TAB PO SCH (07:30)
--- NOTE | 2021-10-10 09:10 | Progress Note ---
Subjective Date of service: 10/10/21 Principal diagnosis: Coffe ground emesis Interval history: Assessment - End-stage renal disease on hemodialysis - Hyperkalemia - Anemia of ESRD + GI bleed? - [place]offe ground emesis - Hyperparathyroidism - Hyperphosphatemia Recommendations - HD to Continue TTS with close monitoring of hemodynamic status no heparin with hd - Monitor labs and volume status daily and assess need for additional dialysis session - Epogen with HD - Transfuse for hgb < 7 - Continue phosphorus binders - ESRD diet with 1.4 g/kg per day protein - Renally dose medication for creatinine clearance less than 15 cc/min - GI note and endoscopy result reviewed stable for dc from renal standpoint Subjective Principal diagnosis: Coffe ground emesis Interval history: labs and chart reviewed Objective - Exam Narrative Exam: General: No acute distress HEENT: Oral mucosa moist Neck: Supple, no JVD Chest: Clear to auscultation bilaterally Heart: RRR, S1 and S2, no pericardial rub Abdomen: Soft, nontender, no renal bruit Extremity: No peripheral cyanosis, edema Neurological: Alert, awake, no asterixis Dermatology: No skin rash Psych: No agitation Musculoskeletal: No joint effusion Objective - Vital Signs Vital signs: Vital Signs - 12hr 10/09/21 10/09/21 10/09/21 21:29 21:41 22:30 Temperature Pulse Rate Respiratory Rate Blood Pressure 109/35 Blood Pressure [Right] O2 Sat by Pulse 98 100 Oximetry 10/09/21 10/09/21 10/10/21 22:51 23:00 00:29 Temperature 98.3 F Pulse Rate 80 Respiratory Rate Blood Pressure Blood Pressure [Right] O2 Sat by Pulse 100 94 Oximetry 10/10/21 10/10/21 04:53 07:54 Temperature 98.5 F 98.1 F Pulse Rate 78 80 Respiratory 16 20 Rate Blood Pressure 143/60 Blood Pressure 119/50 [Right] O2 Sat by Pulse 100 94 Oximetry - Lab 10/10/21 06:01 10/10/21 06:01 Most recent lab results Calcium 8.7 mg/dL (8.4-10.2) 10/10/21 06:01 Magnesium 2.00 mg/dL (1.7-2.3) 10/07/21 00:07 Medications & Allergies - Medications Allergies/Adverse Reactions: Allergies Sulfa (Sulfonamide Antibiotics) Allergy (Verified 10/09/21 11:31) Rash Home Medications: Home Medications Medication Instructions Recorded Confirmed Last Taken Type Atorvastatin [Lipitor Tab] 80 mg PO QHS 10/09/21 10/09/21 Unknown History Gabapentin 300 mg PO QDAY 10/09/21 10/09/21 Unknown History Insulin Lispro [Humalog 100 10 units SQ BIDAC 10/09/21 10/09/21 Unknown History UNITS/ML Kwikpen] Lactulose 10 gm PO PRN PRN 10/09/21 10/09/21 Unknown History Lidocain2.5%/Prilocai2.5% [Emla] 1 applicatio TP PRN PRN 10/09/21 10/09/21 Unknown History Active Medications: Generic Name Dose Route Start Last Admin Trade Name Freq PRN Reason Stop Dose Admin Acetaminophen 650 mg 10/07/21 02:27 10/09/21 01:05 Acetaminophen 325 Mg Tab PO 650 mg Q4H PRN Administration Pain MILD(1-3)/Fever >100.5/ELMORE Atorvastatin Calcium 80 mg 10/08/21 22:00 10/09/21 21:14 Atorvastatin 40 Mg Tab PO 80 mg QHS HELGA Administration Dextrose 0 ml 10/07/21 02:27 Dextrose 50% In Water (25gm) 50 Ml Syringe IV Q30MIN PRN Hypoglycemia Protocol Sodium Chloride 100 mls @ 999 mls/hr 10/07/21 08:55 Nacl 0.9% IV JUAN PRN Hypotension Insulin Human Lispro 0 unit 10/07/21 07:30 10/09/21 22:55 Insulin Lispro 100 Unit/Ml SUB-Q 4 unit ACHS HELGA Administration Protocol Magnesium Hydroxide 30 ml 10/07/21 02:27 Magnesium Hydroxide (Mom) Oral Liqd Udc PO Q4H PRN Constipation Morphine Sulfate 2 mg 10/07/21 02:27 10/07/21 21:42 Morphine 2 Mg/1 Ml Inj IV 2 mg Q4H PRN Administration Pain, Moderate (4-6) Morphine Sulfate 4 mg 10/07/21 02:27 Morphine 4 Mg/1 Ml Inj IV Q4H PRN Pain , Severe (7-10) Ondansetron HCl 4 mg 10/07/21 02:27 Ondansetron 4 Mg/2 Ml Inj IV Q8H PRN Nausea And Vomiting Pantoprazole Sodium 40 mg 10/10/21 07:30 Pantoprazole 40 Mg Tab PO BIDAC HELGA Sodium Chloride 10 ml 10/07/21 10:00 10/09/21 21:14 Sodium Chloride 0.9% 10 Ml Flush Syringe IV 10 ml BID HELGA Administration Sodium Chloride 10 ml 10/07/21 02:27 Sodium Chloride 0.9% 10 Ml Flush Syringe IV PRN PRN LINE FLUSH
--- NOTE | 2021-10-10 09:25 | Gastroenterology Progress Note ---
Assessment and Plan UGI bleed - 2/2 ulcerative esophagitis. H/H stable without further bleeding signs. cont PPI BID dosing, repeat EGD in 2 months as outpatient to assess for healing and evaluate for underlying de los santos's esophagus. diet as tolerated. will sign off, please call as needed. Subjective Date of service: 10/10/21 Principal diagnosis: Coffe ground emesis Interval history: pt feeling well without new gi complaints. denies further signs of bleeding since endoscopy. Objective - Constitutional Vitals: Temp Pulse Resp BP Pulse Ox 98.1 F 80 20 143/60 94 10/10/21 07:54 10/10/21 07:54 10/10/21 07:54 10/10/21 07:54 10/10/21 07:54 General appearance: no acute distress - Respiratory Respiratory effort: normal Respiratory: bilateral: CTA - Cardiovascular Rhythm: regular Heart Sounds: Present: S1 & S2 - Gastrointestinal General gastrointestinal: Present: soft, non-tender - Labs CBC & Chem 7: 10/10/21 06:01 10/10/21 06:01 Labs: Laboratory Results - last 24 hr 10/09/21 10/09/21 10/09/21 09:36 09:36 11:52 WBC 6.0 RBC 2.62 L Hgb 8.4 L Hct 25.4 L MCV 97 H MCH 32 MCHC 33 RDW 20.5 H Plt Count 193 Lymph % (Auto) [place] % (Auto) Eos % (Auto) Baso % (Auto) Lymph # (Auto) [place] # (Auto) Eos # (Auto) Baso # (Auto) Seg Neutrophils % Seg Neutrophils # Sodium 134 L Potassium 4.9 Chloride 94.1 L Carbon Dioxide 23 Anion Gap 22 BUN 95 H Creatinine 5.3 H Estimated GFR 11 BUN/Creatinine Ratio 18 Glucose 169 H POC Glucose 151 H Calcium 8.6 10/09/21 10/09/21 10/10/21 16:07 22:20 06:01 WBC 6.6 RBC 2.89 L Hgb 8.8 L Hct 28.0 L MCV 97 H MCH 30 MCHC 31 L RDW 20.8 H Plt Count 193 Lymph % (Auto) 9.1 L [place] % (Auto) 9.1 H Eos % (Auto) 2.4 Baso % (Auto) 1.3 Lymph # (Auto) 0.6 L [place] # (Auto) 0.6 Eos # (Auto) 0.2 Baso # (Auto) 0.1 Seg Neutrophils % 78.1 H Seg Neutrophils # 5.2 Sodium Potassium Chloride Carbon Dioxide Anion Gap BUN Creatinine Estimated GFR BUN/Creatinine Ratio Glucose POC Glucose 103 252 H Calcium 10/10/21 10/10/21 06:01 07:53 WBC RBC Hgb Hct MCV MCH MCHC RDW Plt Count Lymph % (Auto) [place] % (Auto) Eos % (Auto) Baso % (Auto) Lymph # (Auto) [place] # (Auto) Eos # (Auto) Baso # (Auto) Seg Neutrophils % Seg Neutrophils # Sodium 133 L Potassium 5.2 H Chloride 92.7 L Carbon Dioxide 22 Anion Gap 24 BUN 101 H Creatinine 6.1 H Estimated GFR 9 BUN/Creatinine Ratio 17 Glucose 205 H POC Glucose 199 H Calcium 8.7
--- NOTE | 2021-10-10 10:51 | Electrocardiograph Report ---
[facility] Test Date: 2021-10-07 Test Time: 00:23:04 Pat Name: JESS COWART Department: Room: A484 Gender: M Swimming Pool Attendant: Oliver NICKERSON : 1950 Requested By: MISSY HUANG Order Number: [id number] Reading MD: Tiana Braswell Measurements Intervals [place] Rate: 90 P: HI: QRS: 8 QRSD: 79 T: 75 QT: 427 QTc: 523 Interpretive Statements Sinus rhythm with marked first-degree AV block Poor R wave progression, possible old anterior infarct Nonspecific ST changes Prolonged QT interval No previous ECG available for comparison Electronically Signed On 10-10-2021 10:51:04 EST by Tiana Braswell
--- NOTE | 2021-10-10 11:29 | Electrocardiograph Report ---
[facility] Test Date: 2021-10-08 Test Time: 07:49:23 Pat Name: JESS COWART Department: Room: A484 1 Gender: M Client Support Coordinator: DYLAN : 1950 Requested By: HARI NORMAN Order Number: [id number] Reading MD: Tiana Braswell Measurements Intervals [place] Rate: 73 P: 8 WV: 341 QRS: 13 QRSD: 91 T: 139 QT: 444 QTc: 489 Interpretive Statements Sinus rhythm First-degree AV block Nonspecific T wave abnormality Compared to ECG 10/07/2021 00:23:04 No significant change Electronically Signed On 10-10-2021 11:28:27 EST by Tiana Braswell
--- NOTE | 2021-10-10 11:55 | Progress Note ---
Assessment and Plan 70-year-old male with diabetes orthostatic hypotension end-stage renal disease on hemodialysis came to the hospital for blackened stools. Patient is found to have an ulcer in esophagus s/p cauterization ESRD on HD- nephrology following NSTEMI type 2 Anemia due to GI Bleed Ulcerative esophagitiss/p cauterization- GI following Orthostatic hypotensison CAD Echo 10/08/2021-EF 45 to 50% right ventricle moderate to severely dilated, right ventricle hypokinetic. Left atrium moderately dilated. Right atrium mildly dilated. Moderate pulmonary hypertension. Moderate left pleural effusion. Echo 07/2021 -normal LV function moderate tricuspid rotation RVSP of 40 to 50 mmHg Cardiac cath 2018 -left main 20% patent LAD circumflex patent RCA patent normal LV function Plan: Holding BB or Rigoberto/ARB due to low BP No anticoagulation or antiplatelet due to GI bleed Continue DM meds and statin Patient cardiac status is stable for discharge. Will sign off Discussed with patient the need for follow up with their primary cardiologists in 1-2 weeks. Patient seen in conjunction with Dr. Wiley who agrees with this plan of care. - Patient Problems (1) Anemia Current Visit: Yes Status: Acute Qualifiers: Chronic kidney disease stage: on chronic dialysis (2) ESRD (end stage renal disease) Current Visit: Yes Status: Acute (3) GI bleed Current Visit: Yes Status: Acute Qualifiers: GI bleed type/associated pathology: duodenal ulcer Qualified Code(s): K26.4 - Chronic or unspecified duodenal ulcer with hemorrhage (4) Non-STEMI (non-ST elevated myocardial infarction) Current Visit: Yes Status: Acute (5) CAD (coronary artery disease) Current Visit: Yes Status: Chronic Qualifiers: Coronary Disease-Associated Artery/Lesion type: upper [place] artery Associated an asaf: with stable angina (6) Diabetes mellitus Current Visit: Yes Status: Chronic Qualifiers: Diabetes mellitus type: type 1 (7) Hyperlipemia, mixed Current Visit: Yes Status: Chronic Subjective Date of service: 10/10/21 Principal diagnosis: Coffe ground emesis Interval history: Patient for HD this AM 1st degree block 80s on monitor Objective Vital Signs Temp Pulse Resp BP BP Pulse Ox 10/10/21 10:20 98.0 F 76 126/62 10/10/21 07:54 98.1 F 80 20 143/60 94 10/10/21 04:53 98.5 F 78 16 119/50 100 10/10/21 00:29 80 94 10/09/21 23:00 100 10/09/21 22:51 98.3 F 10/09/21 22:30 100 10/09/21 21:41 109/35 10/09/21 21:29 98 10/09/21 17:38 98 10/09/21 16:50 99.0 F 75 18 113/55 73 L 10/09/21 16:00 72 - Physical Examination General: No Apparent Distress HEENT: Positive: PERRL, EOMI Neck: Positive: neck supple Cardiac: Positive: Reg Rate and Rhythm Lungs: Positive: Normal Breath Sounds Neuro: Positive: Grossly Intact Abdomen: Positive: Soft Extremities: Present: normal - Labs and Meds CBC 10/10/21 Range/Units 06:01 WBC 6.6 (4.5-11.0) K/mm3 RBC 2.89 L (3.65-5.03) M/mm3 Hgb 8.8 L (11.8-15.2) gm/dl Hct 28.0 L (35.5-45.6) % Plt Count 193 (140-440) K/mm3 Lymph # (Auto) 0.6 L (1.2-5.4) K/mm3 [place] # (Auto) 0.6 (0.0-0.8) K/mm3 Eos # (Auto) 0.2 (0.0-0.4) K/mm3 Baso # (Auto) 0.1 (0.0-0.1) K/mm3 Comprehensive Metabolic Panel 10/10/21 Range/Units 06:01 Sodium 133 L (137-145) mmol/L Potassium 5.2 H (3.6-5.0) mmol/L Chloride 92.7 L (98-107) mmol/L Carbon Dioxide 22 (22-30) mmol/L BUN 101 H (9-20) mg/dL Creatinine 6.1 H (0.8-1.3) mg/dL Glucose 205 H (75-100) mg/dL Calcium 8.7 (8.4-10.2) mg/dL - Imaging and Cardiology Echo: report reviewed (07/2021 normal LV function moderate tricuspid rotation RVSP of 40 to 50 mmHg) Cardiac cath: report reviewed (2018 left main 20% patent LAD circumflex patent RCA patent normal LV function) - Telemetry EKG Rhythm: Sinus Rhythm - EKG Sinus rhythms and dysrhythmias: sinus rhythm (Sinus nonspecific ST-T's no change from previous EKG) AV and intraventricular conduction: 1 AV block
--- NOTE | 2021-10-10 19:49 | Progress Note ---
Assessment and Plan Assessment and plan: 70-year-old male with diabetes orthostatic hypotension end-stage renal disease on hemodialysis came to the hospital for blackened stools. A/P -- GI bleed s/p EGD due to Ulcerative esophagitis He has been commenced on Protonix. Advance diet as tolerated GI following Will need a follow-up EGD -- Abdominal pain Etiology unclear Possibly secondary to gastritis. Patient placed on proton pump inhibitor. -- Anemia due to GI bleed We will monitor CBC. transfuse as needed --h/o SAH, CT head unremarkable --Possible dementia, supportive care --Abnormal troponin Patient had normal LV function echocardiogram in July 2021 with moderate pulmonary pretension. Patient cardiac cath in 2017 reveals left main 20% and patent LAD circumflex and RCA with normal LV function. Patient denies any chest pain or shortness of breath. Cardiology consulted, treat medically -- Chronic respiratory failure Patient has known history of CHF/COPD On home oxygen. -- ESRD (end stage renal disease) Patient gets dialysis on Tuesdays, and Saturdays. Consult placed to nephrology for evaluation. --DVT prophylaxis Patient placed on sequential compression device. --Full code status Daily clinical course: 10/07/21: Appeared to be slightly confused Discussed with [place] physician and patient does have history of subarachnoid hemorrhage due to trauma back in July this year Will get serial troponin, EKG and CT head We will follow H&H, GI consult pending Continue PPI IV 10/08/21: s/p EGD showed Ulcerative esophagitis with adherent clot and underlying oozing of blood s/p epi injection with hemostasis. 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 cont IV PPI drip x 24 hours and then switch to bid dosing tomorrow if no further bleeding/stable symptoms -okay for clears today -monitor H/H and transfuse as indicated to keep hgb > 7 -will need repeat endoscopy in 2 months to assess for healing and biopsy for underlying de los santos's if indicated 10/09: Hb dropped to 6.9 - transfuse PRBC, HD today, PER GI cont IV PPI today and switch to bid dosing tomorrow. can advance diet today. follow h/h 10/10: Hemoglobin is stable. No further GI bleed reported. On PPI. Advancing diet. Potassium 5.2 today. Possible discharge tomorrow if continues to be stable, tolerating diet without recurrence of GI bleed. History Interval history: Patient remains on PPI. Diet is being advanced. Hemoglobin stable. Potassium 5.2 today. Hospitalist Physical - Constitutional Vitals: Temp Pulse Resp BP Pulse Ox 98.0 F 80 18 154/65 100 10/10/21 16:22 10/10/21 18:01 10/10/21 16:22 10/10/21 16:22 10/10/21 16:22 General appearance: Present: no acute distress, cachectic - EENT Eyes: Present: PERRL ENT: clear oral mucosa - Neck Neck: Present: supple - Respiratory Respiratory effort: normal Respiratory: bilateral: CTA - Cardiovascular Rhythm: regular - Extremities Extremities: No edema - Abdominal General gastrointestinal: soft, non-tender, non-distended, normal bowel sounds - Integumentary Integumentary: Absent: rash HEART Score - HEART Score Troponin: Troponin T 0.190 ng/mL (0.00-0.029) H* D 10/08/21 00:57 Results - Labs CBC & Chem 7: 10/11/21 05:04 10/11/21 05:04 Labs: Laboratory Last Values WBC 6.6 K/mm3 (4.5-11.0) 10/10/21 06:01 RBC 2.89 M/mm3 (3.65-5.03) L 10/10/21 06:01 Hgb 8.8 gm/dl (11.8-15.2) L 10/10/21 06:01 Hct 28.0 % (35.5-45.6) L 10/10/21 06:01 MCV 97 fl (84-94) H 10/10/21 06:01 MCH 30 pg (28-32) 10/10/21 06:01 MCHC 31 % (32-34) L 10/10/21 06:01 RDW 20.8 % (13.2-15.2) H 10/10/21 06:01 Plt Count 193 K/mm3 (140-440) 10/10/21 06:01 Lymph % (Auto) 9.1 % (13.4-35.0) L 10/10/21 06:01 [place] % (Auto) 9.1 % (0.0-7.3) H 10/10/21 06:01 Eos % (Auto) 2.4 % (0.0-4.3) 10/10/21 06:01 Baso % (Auto) 1.3 % (0.0-1.8) 10/10/21 06:01 Lymph # (Auto) 0.6 K/mm3 (1.2-5.4) L 10/10/21 06:01 [place] # (Auto) 0.6 K/mm3 (0.0-0.8) 10/10/21 06:01 Eos # (Auto) 0.2 K/mm3 (0.0-0.4) 10/10/21 06:01 Baso # (Auto) 0.1 K/mm3 (0.0-0.1) 10/10/21 06:01 Seg Neutrophils % 78.1 % (40.0-70.0) H 10/10/21 06:01 Seg Neutrophils # 5.2 K/mm3 (1.8-7.7) 10/10/21 06:01 PT 17.2 Sec. (12.2-14.9) H 10/08/21 05:55 INR 1.27 (0.87-1.13) H 10/08/21 05:55 APTT 32.1 Sec. (24.2-36.6) 10/07/21 00:07 Sodium 133 mmol/L (137-145) L 10/10/21 06:01 Potassium 5.2 mmol/L (3.6-5.0) H 10/10/21 06:01 Chloride 92.7 mmol/L (98-107) L 10/10/21 06:01 Carbon Dioxide 22 mmol/L (22-30) 10/10/21 06:01 Anion Gap 24 mmol/L 10/10/21 06:01 BUN 101 mg/dL (9-20) H 10/10/21 06:01 Creatinine 6.1 mg/dL (0.8-1.3) H 10/10/21 06:01 Estimated GFR 9 ml/min 10/10/21 06:01 BUN/Creatinine Ratio 17 % 10/10/21 06:01 Glucose 205 mg/dL (75-100) H 10/10/21 06:01 POC Glucose 231 mg/dL (70-105) H 10/10/21 16:21 Calcium 8.7 mg/dL (8.4-10.2) 10/10/21 06:01 Magnesium 2.00 mg/dL (1.7-2.3) 10/07/21 00:07 Total Bilirubin 0.70 mg/dL (0.1-1.2) 10/07/21 00:07 AST 43 units/L (5-40) H 10/07/21 00:07 ALT 26 units/L (7-56) 10/07/21 00:07 Alkaline Phosphatase 267 units/L (35-129) H 10/07/21 00:07 Troponin T 0.190 ng/mL (0.00-0.029) H* D 10/08/21 00:57 Total Protein 6.1 g/dL (6.3-8.2) L 10/07/21 00:07 Albumin 2.9 g/dL (3.9-5) L 10/07/21 00:07 Albumin/Globulin Ratio 0.9 % 10/07/21 00:07 Triglycerides 133 mg/dL (2-149) 10/07/21 17:24 Cholesterol 79 mg/dL (50-199) 10/07/21 17:24 LDL Cholesterol Direct 27 mg/dL (50-130) L 10/07/21 17:24 HDL Cholesterol 24 mg/dL (40-59) L 10/07/21 17:24 Cholesterol/HDL Ratio 3.29 % 10/07/21 17:24 Hepatitis A IgM Ab Non-reactive (NonReactive) 10/07/21 10:50 Hep Bs Antigen Nonreactive (Negative) 10/07/21 10:50 Hep B Core IgM Ab Non-reactive (NonReactive) 10/07/21 10:50 Hepatitis C Antibody Non-reactive (NonReactive) 10/07/21 10:50 Blood Type O POSITIVE 10/07/21 00:07 Antibody Screen Positive 10/07/21 00:07 Antibody Identification Anti-Fya 10/07/21 00:07 Crossmatch See Detail 10/07/21 00:07 Wayne/IV: Voiding Method Toilet Active Medications - Current Medications Current Medications: Generic Name Dose Route Start Last Admin Trade Name Freq PRN Reason Stop Dose Admin Acetaminophen 650 mg 10/07/21 02:27 10/09/21 01:05 Acetaminophen 325 Mg Tab PO 650 mg Q4H PRN Administration Pain MILD(1-3)/Fever >100.5/ELMORE Atorvastatin Calcium 80 mg 10/08/21 22:00 10/09/21 21:14 Atorvastatin 40 Mg Tab PO 80 mg QHS HELGA Administration Dextrose 0 ml 10/07/21 02:27 Dextrose 50% In Water (25gm) 50 Ml Syringe IV Q30MIN PRN Hypoglycemia Protocol Sodium Chloride 100 mls @ 999 mls/hr 10/07/21 08:55 Nacl 0.9% IV JUAN PRN Hypotension Insulin Human Lispro 0 unit 10/07/21 07:30 10/10/21 12:28 Insulin Lispro 100 Unit/Ml SUB-Q Not Given ACHS HELGA Protocol Magnesium Hydroxide 30 ml 10/07/21 02:27 Magnesium Hydroxide (Mom) Oral Liqd Udc PO Q4H PRN Constipation Morphine Sulfate 2 mg 10/07/21 02:27 10/07/21 21:42 Morphine 2 Mg/1 Ml Inj IV 2 mg Q4H PRN Administration Pain, Moderate (4-6) Morphine Sulfate 4 mg 10/07/21 02:27 Morphine 4 Mg/1 Ml Inj IV Q4H PRN Pain , Severe (7-10) Ondansetron HCl 4 mg 10/07/21 02:27 Ondansetron 4 Mg/2 Ml Inj IV Q8H PRN Nausea And Vomiting Pantoprazole Sodium 40 mg 10/10/21 07:30 10/10/21 07:30 Pantoprazole 40 Mg Tab PO Not Given BIDAC HELGA Sodium Chloride 10 ml 10/07/21 10:00 10/10/21 12:29 Sodium Chloride 0.9% 10 Ml Flush Syringe IV Not Given BID HELGA Sodium Chloride 10 ml 10/07/21 02:27 Sodium Chloride 0.9% 10 Ml Flush Syringe IV PRN PRN LINE FLUSH Nutrition/Malnutrition Assess - Dietary Evaluation Nutrition/Malnutrition Findings: Nutrition Notes Start: 10/07/21 11:50 Freq: Status: Active Protocol: Document 10/10/21 15:31 CHRISTIE (Rec: 10/10/21 15:41 CHRISTIE [id number]) Nutrition Notes Initial or Follow up Reassessment Current Diagnosis CKD (stage V CKD),Sepsis, Hypertension,Heart Failure, Respiratory Failure Other Pertinent Diagnosis Upper GIB, anemia, ulcerative esophagitis, ? dementia Current Diet Renal Labs/Tests Na 133 BG 205 K 5.2 BUN 101 Cr 6.1 Pertinent Medications Reviewed Height 5 ft 2 in Weight 107.5 kg [place] Body Weight (kg) 53.63 BMI 43.3 Weight Status Morbidly Obese Subjective/Other Information Diet advanced yesterday. Pt consumed 50% x two meals today . Pt says it is easier to drink than chew food right now , as his breathing is a little labored as we conversed. He reports no recent wt changes. Percent of energy/protein needs met: 60% energy 40% pro Burn Absent Trauma Absent Minimum of two criteria No #1 Nutrition Diagnosis Altered GI function As Evidenced by Signs and Symptoms diet advanced and pt tolerating PO intake Diagnosis Progress(for reassessment Improved documentation) Is patient on ventilator? No Is Patient Ambulatory and/or Out of Bed Yes REE-([facility] [place]-ambulatory/OOB) [ 2228.525 [id number]] Kcal/Kg value to use for calculation 16 Approximate Energy Requirements Using 1720 kcal/Kg Calculation Used for Recommendations Kcal/kg Additional Notes Pro needs >1.2g/kg adjBW: >97g /day Fluid needs 1-1.5L/day Nutrition Intervention Change Diet Order: Add Consistent CHO modifier to current diet order Goal #1 PO intake to meet at least 75% energy and pro needs Follow-Up By: 10/12/21 Additional Comments F/U: intakes, need for ONS
[2021-10-11 00:39] LABS: Bacteria,Urine 4+ /HPF (Negative); Bilirubin,Urine NEG (Negative); Blood,Urine MOD (Negative); Color,Urine Yellow (Yellow); Mucus,Urine FEW /HPF; Urobilinogen,Urine < 2.0 mg/dL (<2.0)
[2021-10-11 00:41] LABS: Protein,Urine >500 mg/dL (Negative); WBC,Urine > 182.0 /HPF (0.0-6.0)
[2021-10-11] MEDS ORDERED: diphenhydrAMINE 25 MG/10 ML ORAL LIQUID PO ONE (03:43)
[2021-10-11 06:06] LABS: Calcium 8.4 mg/dL (8.4-10.2)
[2021-10-11 06:20] LABS: Hematocrit 25.6 % (35.5-45.6); Hemoglobin 8.2 gm/dl (11.8-15.2); Mean Corpuscular HGB Conc 32 % (32-34); Mean Corpuscular Volume 98 fl (84-94); Platelet Count 179 K/mm3 (140-440); Red Blood Count 2.62 M/mm3 (3.65-5.03)
[2021-10-11 06:22] LABS: Red Cell Distribution Width 20.1 % (13.2-15.2)
[2021-10-11] MEDS: PANTOPRAZOLE 40 MG TAB PO SCH ×3 (06:40→17:11)
[2021-10-11] MEDS: INSULIN LISPRO 100 UNIT/ML SUB-Q SCH ×5 (07:24→22:03)
--- NOTE | 2021-10-11 07:32 | Progress Note ---
Subjective Date of service: 10/11/21 Principal diagnosis: [place] emesis Interval history: Assessment - End-stage renal disease on hemodialysis - Hyperkalemia - Anemia of ESRD + GI bleed? - [place] emesis - Hyperparathyroidism - Hyperphosphatemia Recommendations - HD to Continue TTS with close monitoring of hemodynamic status no heparin with hd - Monitor labs and volume status daily and assess need for additional dialysis session - Epogen with HD - Transfuse for hgb < 7 - Continue phosphorus binders - ESRD diet with 1.4 g/kg per day protein - Renally dose medication for creatinine clearance less than 15 cc/min - GI note and endoscopy result reviewed stable for dc from renal standpoint Subjective Principal diagnosis: [place] emesis Interval history: labs and chart reviewed Objective - Exam Narrative Exam: General: No acute distress HEENT: Oral mucosa moist Neck: Supple, no JVD Chest: Clear to auscultation bilaterally Heart: RRR, S1 and S2, no pericardial rub Abdomen: Soft, nontender, no renal bruit Extremity: No peripheral cyanosis, edema Neurological: Alert, awake, no asterixis Dermatology: No skin rash Psych: No agitation Musculoskeletal: No joint effusion Objective - Vital Signs Vital signs: Vital Signs - 12hr 10/10/21 10/10/21 10/10/21 19:50 22:06 22:28 Temperature 98.2 F Pulse Rate 82 81 Respiratory 20 Rate Blood Pressure 182/81 O2 Sat by Pulse 100 96 Oximetry 10/10/21 10/10/21 10/11/21 23:00 23:15 04:21 Temperature 98.5 F 97.7 F Pulse Rate 78 76 Respiratory 18 16 Rate Blood Pressure 150/69 130/65 O2 Sat by Pulse 94 94 96 Oximetry - Lab 10/11/21 05:04 10/11/21 05:04 Most recent lab results Calcium 8.4 mg/dL (8.4-10.2) 10/11/21 05:04 Magnesium 2.00 mg/dL (1.7-2.3) 10/07/21 00:07 Medications & Allergies - Medications Allergies/Adverse Reactions: Allergies Sulfa (Sulfonamide Antibiotics) Allergy (Verified 10/09/21 11:31) Rash Home Medications: Home Medications Medication Instructions Recorded Confirmed Last Taken Type Atorvastatin [Lipitor Tab] 80 mg PO QHS 10/09/21 10/09/21 Unknown History Gabapentin 300 mg PO QDAY 10/09/21 10/09/21 Unknown History Insulin Lispro [Humalog 100 10 units SQ BIDAC 10/09/21 10/09/21 Unknown History UNITS/ML Kwikpen] Lactulose 10 gm PO PRN PRN 10/09/21 10/09/21 Unknown History Lidocain2.5%/Prilocai2.5% [Emla] 1 applicatio TP PRN PRN 10/09/21 10/09/21 Unknown History Active Medications: Generic Name Dose Route Start Last Admin Trade Name Freq PRN Reason Stop Dose Admin Acetaminophen 650 mg 10/07/21 02:27 10/09/21 01:05 Acetaminophen 325 Mg Tab PO 650 mg Q4H PRN Administration Pain MILD(1-3)/Fever >100.5/ELMORE Atorvastatin Calcium 80 mg 10/08/21 22:00 10/10/21 21:44 Atorvastatin 40 Mg Tab PO 80 mg QHS HELGA Administration Dextrose 0 ml 10/07/21 02:27 Dextrose 50% In Water (25gm) 50 Ml Syringe IV Q30MIN PRN Hypoglycemia Protocol Sodium Chloride 100 mls @ 999 mls/hr 10/07/21 08:55 Nacl 0.9% IV JUAN PRN Hypotension Insulin Human Lispro 0 unit 10/07/21 07:30 10/11/21 07:24 Insulin Lispro 100 Unit/Ml SUB-Q Not Given ACHS [facility] Protocol Magnesium Hydroxide 30 ml 10/07/21 02:27 Magnesium Hydroxide (Mom) Oral Liqd Udc PO Q4H PRN Constipation Morphine Sulfate 2 mg 10/07/21 02:27 10/07/21 21:42 Morphine 2 Mg/1 Ml Inj IV 2 mg Q4H PRN Administration Pain, Moderate (4-6) Morphine Sulfate 4 mg 10/07/21 02:27 Morphine 4 Mg/1 Ml Inj IV Q4H PRN Pain , Severe (7-10) Ondansetron HCl 4 mg 10/07/21 02:27 Ondansetron 4 Mg/2 Ml Inj IV Q8H PRN Nausea And Vomiting Pantoprazole Sodium 40 mg 10/10/21 07:30 10/11/21 07:24 Pantoprazole 40 Mg Tab PO Not Given BIDAC [facility] Sodium Chloride 10 ml 10/07/21 10:00 10/10/21 21:45 Sodium Chloride 0.9% 10 Ml Flush Syringe IV 10 ml BID HELGA Administration Sodium Chloride 10 ml 10/07/21 02:27 Sodium Chloride 0.9% 10 Ml Flush Syringe IV PRN PRN LINE FLUSH
[2021-10-11] MEDS: MORPHINE 2 MG/1 ML INJ IV PRN (08:27)
[2021-10-11] MEDS ORDERED: GABAPENTIN 300 MG CAP PO SCH (11:00)
[2021-10-11] MEDS ORDERED: SODIUM FERRIC GLUCON/SUCRO 250 MG in SODIUM CHLORIDE 0.9% 100 ML IV ONE (12:30)
--- NOTE | 2021-10-11 16:41 | Discharge Summary ---
Providers - Providers Date of Admission: 10/07/21 11:29 Attending physician: SUHA CUMMINGS MD 10/07/21 00:02 Consult to Physician [CONS] Urgent Comment: Dr. Dueñas spoke with Dr. Gray @ 0105 Consulting Provider: LILIAN ROBERSON Physician Instructions: Reason For Exam: esrd Consult to Physician [CONS] Urgent Comment: Dr. Dueñas spoke with Dr. Prather @ 0100 Consulting Provider: WOODY MATTHEWS Physician Instructions: Reason For Exam: gi bleed 10/07/21 02:28 Consult to Dietitian/Nutrition [CONS] Routine Physician Instructions: Reason For Exam: Reason for Consult: Diet education 10/08/21 02:00 Consult to Cardiology [CONS] Routine Consulting Provider: TONY AGUIRRE Reason For Exam: Elevated Troponin Primary care physician: CLINICAL LABORATORY SCIENTIST Hospitalization Condition: Stable Hospital course: Discharge instructions to patient Take baby aspirin 80 mg daily after 1 week for your heart. See your wallpaperer in 1 to 2 weeks for follow-up. See Dr.Keval Prather, devulcanizer head in 2 weeks for follow-up Continue Protonix twice daily for esophageal ulcers indefinitely Return to ER if you notice bleeding again Disposition: HOME / SELF CARE / HOMELESS Exam - Constitutional Vitals: Temp Pulse Resp BP Pulse Ox 97.5 F L 77 24 146/68 96 10/11/21 12:15 10/11/21 12:15 10/11/21 12:15 10/11/21 12:15 10/11/21 12:15 General appearance: Present: no acute distress - EENT Eyes: Present: PERRL ENT: clear oral mucosa - Neck Neck: Present: supple - Respiratory Respiratory effort: normal, other (On 3 L home O2) - Cardiovascular Rhythm: regular - Extremities Extremities: No edema - Abdominal General gastrointestinal: Present: soft, non-tender, non-distended - Neurologic Neurologic: moves all extremities, other (Alert and oriented) Plan Activity: advance as tolerated Diet: low fat, low cholesterol, low salt, diabetic, renal Special Instructions: restrict fluid intake to (1500 mL) Additional Instructions: Take baby aspirin 80 mg daily after 1 week for your heart. See your wallpaperer in 1 to 2 weeks for follow-up. See Dr.Keval Prather, devulcanizer head in 2 weeks for follow-up. Continue Protonix twice daily for esophageal ulcers indefinitely. Return to ER if you notice bleeding again Follow up with: PRIMARY CARE, [Primary Care Provider] - 3-5 Days AREN PRATHER MD [Staff Physician] - 14 Days Forms: AMA Form, Accompanied Note Prescriptions: Iron Ag,Ps/C/Fa6/B12/Zn/SA/Sto [Niferex Tablet] 1 each PO DAILY #90 tablet Pantoprazole [Protonix TAB] 40 mg PO BIDAC #60 tablet
[2021-10-11 17:06] VITALS: BP 146/83
== END 2021-10-11 22:30 | disposition home or self-care (01) | DRG 380 ==
LOC: ED 22:52 → 4A 10-07 08:27 → OBSVTOIN 10-07 11:29
PROVIDERS: ADMIT Internal Medicine Geriatric Medicine; ATTEND Internal Medicine
PROC: 5A1D70Z Performance of Urinary Filtration, Intermittent, Less than 6 Hours Per Day (ICD-10-PCS; 2021-10-07)
PROC: 0W3P8ZZ Control Bleeding in Gastrointestinal Tract, Via Natural or Artificial Opening Endoscopic (ICD-10-PCS; principal; 2021-10-08)
PROC: 3E0G8GC Introduction of Other Therapeutic Substance into Upper GI, Via Natural or Artificial Opening Endoscopic (ICD-10-PCS; 2021-10-08)
DX: K22.11 Ulcer of esophagus with bleeding (principal); N18.6 End stage renal disease; I21.A1 Myocardial infarction type 2; J96.10 Chronic respiratory failure, unspecified whether with hypoxia or hypercapnia; I13.2 Hypertensive heart and chronic kidney disease with heart failure and with stage 5 chronic kidney disease, or end stage renal disease; K26.4 Chronic or unspecified duodenal ulcer with hemorrhage; D63.1 Anemia in chronic kidney disease; I50.9 Heart failure, unspecified; E11.22 Type 2 diabetes mellitus with diabetic chronic kidney disease; E87.5 Hyperkalemia; E21.3 Hyperparathyroidism, unspecified; E83.39 Other disorders of phosphorus metabolism; I25.10 Atherosclerotic heart disease of native coronary artery without angina pectoris; E78.5 Hyperlipidemia, unspecified; D64.9 Anemia, unspecified; Z20.822 Contact with and (suspected) exposure to COVID-19
CPT/HCPCS: 36415; 70450; 71045; 74176; 80048; 80053; 80061; 80074; 81001; 82962; 83735; 84484; 85014; 85018; 85025; 85027; 85610; 85730; 86850; 86870; 86900; 86901; 86922; 87076; 87086; 87186; 93005; 93306; 94760; G0378; J7120; Q0162; Q9967; C9113; J0171; J1815; J2270; J2405; J2597; J2704; J2765; J2916; J7030; P9016